=== PATIENT | male | born 1950 | race Caucasian/White ===

== ENCOUNTER 2017-05-01 15:20 | Emergency (ER) | payer MEDICARE ==
[2017-05-01 15:29] VITALS: BP 167/82
[2017-05-01] MEDS ORDERED: LEVOFLOXACIN 500 MG/D5W RTU 100 ML IV ONE (16:03)
[2017-05-01] MEDS ORDERED: METHYLPREDNISOLONE INJ 125 MG/2 ML SDV IV ONE (16:03)
--- NOTE | 2017-05-01 16:05 | ER Document Report ---
ED Medical Screen (RME) - General Chief Complaint: Cough Stated Complaint: WHEEZING Time Seen by Provider: 05/01/17 15:52 Mode of Arrival: Ambulatory Information source: Patient Notes: This is a 66-year-old man with a long history of smoking (stopped 5 years ago) who was referred to the emergency room by [facility] . The patient states she started having productive cough, wheezing several days ago. The patient was given 3 nebulizer treatments at the urgent care and a chest x-ray showed a possible right lower lobe pneumonia. They noted that the patient was hypoxic after nebulizer treatments (88%) and he was referred here. Patient states that he is feeling somewhat jittery from the 3 nebulizers. TRAVEL OUTSIDE OF THE [place] IN LAST 30 DAYS: No - Related Data Allergies/Adverse Reactions: No Known Allergies Allergy (Verified 05/01/17 15:26) Past Medical History - Social History Chew tobacco use (# tins/day): Yes Frequency of alcohol use: None Drug Abuse: None - Past Medical History Cardiac Medical History: Denies: Hx Heart Attack, Hx Hypertension Pulmonary Medical History: Comment Only: Hx Asthma - FORMER SMOKER Neurological Medical History: Denies: Hx Cerebrovascular Accident, Hx Seizures Renal/ Medical History: Denies: Hx Peritoneal Dialysis GI Medical History: Denies: Hx Hepatitis, Hx Hiatal Hernia, Hx Ulcer Infectious Medical History: Denies: Hx Hepatitis Past Surgical History: Denies: Hx Open Heart Surgery, Hx Pacemaker Physical Exam - Vital signs Vitals: Temp Pulse Resp BP Pulse Ox 98.2 F 127 H 18 167/82 H 93 05/01/17 15:28 05/01/17 15:28 05/01/17 15:28 05/01/17 15:28 05/01/17 15:28 Course - Vital Signs Vital signs: Temp Pulse Resp BP Pulse Ox 98.2 F 127 H 18 167/82 H 93 05/01/17 15:28 05/01/17 15:28 05/01/17 15:28 05/01/17 15:28 05/01/17 15:28
[2017-05-01 16:28] LABS: ABSOLUTE BASOPHILS # (AUTO) 0.1 10^3/uL (0.0-0.2); ABSOLUTE LYMPHOCYTES (AUTO) 1.4 10^3/uL (0.5-4.7); ABSOLUTE NEUT (AUTO) 11.7 10^3/uL (1.7-8.2); BASOPHILS % (AUTO) 0.6 % (0-2); EOSINOPHILS % (AUTO) 0.1 % (0-6); HEMATOCRIT 49.1 % (37.9-51.0); HEMOGLOBIN 15.7 g/dL (13.5-17.0); MEAN CORPUSCULAR HEMOGLOBIN 29.5 pg (27.0-33.4); MEAN CORPUSCULAR HGB CONC 31.9 g/dL (32.0-36.0); MEAN CORPUSCULAR VOLUME 93 fl (80-97); MONOCYTES % (AUTO) 6.9 % (3-13); RED BLOOD COUNT 5.31 10^6/uL (4.35-5.55); RED CELL DISTRIBUTION WIDTH 12.9 % (11.5-14.0); SEGMENTED NEUTROPHILS % (AUTO) 82.4 % (42-78); WHITE BLOOD COUNT 14.2 10^3/uL (4.0-10.5)
[2017-05-01 16:40] LABS: ALANINE AMINOTRANSFERASE 38 U/L (21-72); ALBUMIN 4.3 g/dL (3.5-5.0); ALKALINE PHOSPHATASE 67 U/L (38-126); ANION GAP 16 (5-19); ASPARTATE AMINO TRANSFERASE 22 U/L (17-59); BILIRUBIN,DIRECT 0.4 mg/dL (0.0-0.4); BILIRUBIN,TOTAL 0.9 mg/dL (0.2-1.3); BLOOD UREA NITROGEN 12 mg/dL (7-20); CALCIUM 9.4 mg/dL (8.4-10.2); CARBON DIOXIDE 25 mmol/L (22-30); CHLORIDE 98 mmol/L (98-107); CREATININE RESULT 0.83 mg/dL (0.52-1.25); GLUCOSE 317 mg/dL (75-110); POTASSIUM 4.8 mmol/L (3.6-5.0); TOTAL PROTEIN 7.5 g/dL (6.3-8.2)
--- NOTE | 2017-05-01 16:42 | ER Document Report ---
ED Respiratory Problem - General Chief Complaint: Cough Stated Complaint: WHEEZING Time Seen by Provider: 05/01/17 15:52 Mode of Arrival: Ambulatory Notes: Patient says he has had a cough for about 10 days. It is producing a yellow colored phlegm. He was having difficulty breathing and went to a local urgent care where he had 3 nebulizer treatments which left him shaking, but also he was still hypoxic after the third neb. They did a chest x-ray in which they think she has a right-sided pneumonia. He did a chest x-ray or the interpretation were sent with the patient. Patient says that he used to smoke, but stopped about 5 or more years ago. Has never been told he has COPD. Never had asthma. Patient has no regular prescription medications to take any medical condition. Patient says that he uses some [id number] inhaler to take before he sings in the choir at [employer] each week. TRAVEL OUTSIDE OF THE [place] IN LAST 30 DAYS: No - Related Data Allergies/Adverse Reactions: No Known Allergies Allergy (Verified 05/01/17 15:26) Past Medical History - General Information source: Patient - Social History Smoking Status: Former Smoker Chew tobacco use (# tins/day): Yes Frequency of alcohol use: None Drug Abuse: None Family History: Reviewed & Not Pertinent Patient has suicidal ideation: No Patient has homicidal ideation: No Pulmonary Medical History: Denies: Hx Asthma - FORMER SMOKER, Hx COPD, Hx Pneumonia, Hx Intubation, Hx Respiratory Failure Infectious Medical History: Denies: Hx Hepatitis Review of Systems - Review of Systems Notes: REVIEW OF SYSTEMS: CONSTITUTIONAL : Denies fever. EENT: Denies eye, ear, nose or mouth or throat pain or other symptoms. CARDIOVASCULAR: Denies chest pain. RESPIRATORY: GASTROINTESTINAL: Denies abdominal pain or nausea, vomiting, or diarrhea. GENITOURINARY: Denies difficulty or painful urinating, urinary frequency, blood in urine. MUSCULOSKELETAL: Denies back or neck pain. Denies joint pain or swelling. No pain or swelling in either lower leg. Negative Homans bilaterally. SKIN: Denies rash or skin lesions. NEUROLOGICAL: Denies LOC or altered mental status. Denies headache. Denies sensory loss or motor deficits. ALL OTHER SYSTEMS REVIEWED AND NEGATIVE. Physical Exam - Vital signs Vitals: Temp Pulse Resp BP Pulse Ox 98.2 F 127 H 18 167/82 H 93 05/01/17 15:28 05/01/17 15:28 05/01/17 15:28 05/01/17 15:28 05/01/17 15:28 Interpretation: Tachycardic - Heart rate of 127, but just recently had 3 nebulizer treatments at a local urgent care office. No: Hypoxic - O2 sat on room air here is 93%. - Notes Notes: PHYSICAL EXAMINATION: Vital signs essentially normal except for tachycardia 127. O2 sat was 93% on room air. GENERAL: Well-appearing, in no acute distress. HEAD: Atraumatic, normocephalic. NECK: Normal range of motion, supple. LUNGS: Fine expiratory wheezes bilaterally. Good air exchange, however. HEART: Regular rate and rhythm without murmurs. ABDOMEN: Soft, nontender. No guarding or rebound. BACK: No tenderness throughout entire back. EXTREMITIES: Normal range of motion without pain. Pretibial edema of either leg. Negative Homans bilaterally. NEUROLOGICAL: Normal speech, normal gait. Normal sensory, motor, and reflex exams. Awake, alert, and oriented x3. Cranial nerves normal. PSYCH: Normal mood, normal affect. SKIN: Warm, dry, no rashes. Course - Re-evaluation Re-evalutation: 05/01/17 18:22 Patient has done well during his stay in the department. He has maintained his oxygen saturations in the low 90s on room air and does not have any labored respirations. His heart rate is slowed down to about 102. I am going to give him one final nebulizer to go home. He is going to be prescribed prednisone, an inhaler for albuterol, and 5 day treatment with Levaquin. 05/01/17 18:24 Lab studies were all normal except for a blood sugar of 361. Patient has never been told he is diabetic and never been on medications for sugar. I am not going to start the patient on any medication for this blood sugar at this time because I do not think it will harm the patient to wait a couple of weeks to get this started by his primary care provider. He says he has an appointment with Dr. Coley on the th of this month, 17 days from now. - Vital Signs Vital signs: Temp Pulse Resp BP Pulse Ox 98.2 F 127 H 18 167/82 H 93 05/01/17 15:28 05/01/17 15:28 05/01/17 15:28 05/01/17 15:28 05/01/17 15:28 - Laboratory Result Diagrams: 05/01/17 16:10 05/01/17 16:10 Laboratory results interpreted by me: 05/01/17 05/01/17 16:10 16:10 WBC 14.2 H MCHC 31.9 L Seg Neutrophils % 82.4 H Lymphocytes % 10.0 L Absolute Neutrophils 11.7 H Glucose 317 H - Diagnostic Test Radiology results interpreted by me: 05/01/17 18:24 Chest x-ray is normal. No evidence of infiltrate or pneumonia. Discharge - Discharge Clinical Impression: COPD exacerbation, High blood sugar Upper respiratory infection Qualifiers: URI type: unspecified URI Qualified Code(s): J06.9 - Acute upper respiratory infection, unspecified Condition: Stable Disposition: HOME, SELF-CARE Additional Instructions: Chronic Obstructive Lung Disease You have chronic obstructive lung disease (COPD). The symptoms come from emphysema (damage to small airways, with trapping of air in large sacks in the lung) and chronic bronchitis (repeated infection and damage to larger airways). The cause is almost always cigarette smoking, although dust exposure, asthma, and infections contribute. You should avoid fumes, dust, and smoke (especially tobacco smoke). Your condition will flare from time to time. There is no cure, but the symptoms can be treated. Bronchodilators (asthma medicine) are often helpful. Antibiotics help when infection is present. When shortness of breath is severe, we may prescribe cortisone medication. If medicine doesn't help enough, we can arrange for you to have an oxygen tank at home. Notify your doctor at once if sputum becomes thick, foul, or bloody, if you develop a fever or chest pain, or if your shortness of breath worsens. BRONCHITIS WITH BRONCHOSPASM (WHEEZING): You have bronchitis with bronchospasm (wheezing). Sometimes people develop wheezing with a chest cold. This occurs either because of an underlying tendency toward asthma or because the virus itself irritates the bronchial tubes. This irritation causes cough, shortness of breath, and wheezing. Emergency treatment of bronchospasm may include adrenaline shots or bronchodilator aerosol. You may feel lightheaded and have a rapid pulse for an hour or two. Rest and get plenty of fluids. At home, we'll treat you with a bronchodilator inhaler. Corticosteroids may be required for some patients. Until you recover, avoid chemical fumes, dusts, pollens, and exercising in very cold or dry air. If you smoke, stop now! Most cases of bronchitis get better without antibiotics. We prescribe antibiotics when we believe bacteria are damaging your airways, or if there's high risk the bronchitis will worsen into pneumonia. Increase your fluid intake. A cool mist humidifier may make your lungs more comfortable. An expectorant (cough medicine that loosens phlegm) can help. Repeated episodes of bronchitis and bronchospasm may result in lung damage -- for example, chronic bronchitis, recurrent pneumonias, or emphysema. If you develop a fever, increased wheezing, chest pain, or severe shortness of breath, you should contact the doctor immediately. INHALED BRONCHODILATORS: You have received a treatment of and/or prescription for an inhaled bronchodilator -- a medication which stimulates the airways in the lung to dilate. This improves the flow of air in asthma, bronchitis, and emphysema. These medicines have some similarity to adrenaline, and can cause similar side effects: shakiness, racing heart, and a sense of nervousness. These side effects decrease with time. Contact your doctor if these side effects are severe. Do not over-use the medicine. Too-frequent use of the inhaler may make it ineffective. Call your doctor if the inhaler is not controlling your symptoms at the prescribed doses. STEROID MEDICATION: You have been given an injection of or oral medicine of the cortisone/ steroid class. This medication is used to control inflammation or allergy. Andrew t is usually only given for a short period of time, until the acute process subsides. There are usually no side effects from short-term use of cortisone-like medications. Some persons feel an increased sense of well-being and are not sleepy at bedtime. Long-term use of cortisone medications is best avoided, unless required for a severe condition. If your condition does not remit, or relapses after the course of corticosteroid medication, you should consult your physician. ANTIBIOTIC THERAPY: You have been given an antibiotic prescription. It's important that you take all the medication, unless instructed otherwise by your physician. Failure to complete the entire course can result in relapse of your condition. Common side effects of antibiotics include nausea, intestinal cramping, or diarrhea. Women may develop vaginal yeast infections, and babies can get yeast (thrush) in the mouth following the use of antibiotics. Contact your physician if you develop significant side effects from this medication. Allergy to this antibiotic can result in hives, wheezing, faintness, or itching. If symptoms of allergy occur, stop the medication and call your doctor. Levofloxacain You have been given an antibacterial agent, levofloxacin (Levaquin). This medicine is not related to the penicillins, sulfas, cephalosporins, or tetracyclines. It is often given to patients who are allergic to these drugs. It has been chosen for you either because other drugs are not appropriate, or because of the nature of your problem. Levaquin should not be taken with antacids, as these can decrease its effectiveness. It can be taken without regard to meals. LEVAQUIN SHOULD NOT BE TAKEN BY CHILDREN, NURSING WOMEN, OR WOMEN. Although Levaquin is usually well-tolerated, common side effects can include nausea and diarrhea. Contact your doctor if you experience any unusual symptoms while on this medication, such as joint pain or swelling, shortness of breath, wheezing, faintness, or hives. HYPERGLYCEMIA (HIGH BLOOD SUGAR): You have an abnormally high blood sugar of 316. Not all high blood sugar requires long-term treatment. High blood sugar can be due to medications, , or the stress of illness. (These cases are "borderline diabetes.") If the doctor feels your high blood sugar might resolve with time, you may not require treatment now. It's very important that you follow through, to see if the blood sugar returns to normal levels. Uncontrolled high blood sugar leads to early heart disease, strokes, nerve damage, eye damage, and kidney damage. Call the physician if there is faintness, excess sleepiness, or very rapid breathing. You need to follow-up with Dr. Coley as planned on the and make him aware that your blood sugar was high on this visit to the emergency department so he can determine if you need to be on medications to treat your high blood sugar. DIABETES: You have an abnormally high blood sugar, suspicious for diabetes. Not all high blood sugar requires long-term treatment. High blood sugar can be due to medications, , or the stress of illness. (These cases are "borderline diabetes.") If the doctor feels your high blood sugar might get better with time, you may not require treatment now. It's very important that you follow through. Uncontrolled high blood sugar leads to early heart disease, strokes, nerve damage, eye damage, and kidney damage. All diabetics should follow a diet designed to control the blood sugar. Overweight diabetics should exercise regularly and lose weight. If this is not sufficient to control the blood sugar, pills or insulin shots are necessary. Younger people who develop diabetes almost always require insulin daily. Home testing of blood sugars or urine sugar is required. Diabetic teaching is available to help you figure insulin doses and monitor the blood sugar. Call the physician if there is faintness, excess sleepiness, or very rapid breathing. If hypoglycemia (LOW blood sugar) develops, symptoms are shakiness, weakness, sweating, and confusion. In this case, you should eat or drink something with sugar at once. USE OF ACETAMINOPHEN (Tylenol): Acetaminophen may be taken for pain relief or fever control. It's much safer than aspirin, offering a wider range of "safe" dosages. It is safe during . Some brand names are Tylenol, Panadol, Datril, Anacin 3, Tempra, and Liquiprin. Acetaminophen can be repeated every four hours. The following are maximum recommended dosages: >89 pounds or adults 650 mg to 900 mg Acetaminophen can be repeated every four hours. Maximum dose not to exceed 4000 mg a day. FOLLOW-UP CARE: If you have been referred to a physician for follow-up care, call the physician s office for an appointment as you were instructed or within the next two days. If you experience worsening or a significant change in your symptoms, notify the physician immediately or return to the Emergency Department at any time for re-evaluation. Prescriptions: Albuterol Sulfate [Proair HFA Inhalation Aerosol 8.5 gm MDI] 2 puff IH Q4H PRN # 1 mdi PRN Reason: Levofloxacin [Levaquin 750 mg Tablet] 750 mg PO DAILY #5 tablet Prednisone [Deltasone 10 mg Tablet] 10 mg PO ASDIR PRN #21 tablet PRN Reason:
--- NOTE | 2017-05-01 17:11 | RADIOLOGY REPORT (SQ) ---
EXAM DESCRIPTION: CHEST PA/LAT COMPLETED DATE/TIME: 05/01/2017 5:02 pm REASON FOR STUDY: Cough, congestion, wheezing, ? pneumonia COMPARISON: None. EXAM PARAMETERS: NUMBER OF VIEWS: two views TECHNIQUE: Digital Frontal and Lateral radiographic views of the chest acquired. RADIATION DOSE: NA LIMITATIONS: none FINDINGS: LUNGS AND PLEURA: The lungs are hyperinflated with flattening of the diaphragm suggestive of underlying COPD. No opacities, masses or pneumothorax. No pleural effusion. MEDIASTINUM AND HILAR STRUCTURES: No masses or contour abnormalities. HEART AND VASCULAR STRUCTURES: Heart normal size. No evidence for failure. BONES: No acute findings. HARDWARE: None in the chest. OTHER: No other significant finding. IMPRESSION: NO ACUTE CARDIOPULMONARY PROCESS. FINDINGS SUGGESTIVE OF UNDERLYING COPD. TECHNICAL DOCUMENTATION: JOB ID: [id number] [email or web address]- All Rights Reserved
[2017-05-01] MEDS ORDERED: IPRATROPIUM/ALBUTEROL 0.5-2.5 MG/3 ML AMPUL NEB ONE (18:21)
== END 2017-05-01 19:05 | disposition home or self-care (01) ==
LOC: ER 15:20
DX: J44.1 Chronic obstructive pulmonary disease with (acute) exacerbation (principal); J06.9 Acute upper respiratory infection, unspecified; R73.9 Hyperglycemia, unspecified; R05 Cough; Z87.891 Personal history of nicotine dependence
CPT/HCPCS: 94640; 99283; 96375; 96365; 36415; 87040; 85025; 80053; 71020; J1956; J2930; A9270; J7620

== ENCOUNTER 2019-10-29 22:37 | Emergency (ER) | payer MEDICARE, OTHER ==
[2019-10-29] MEDS ORDERED: IPRATROPIUM/ALBUTEROL 0.5-2.5 MG/3 ML AMPUL NEB ONE (23:43)
[2019-10-29] MEDS ORDERED: ONDANSETRON 4 MG TAB.RAPDIS PO ONE (23:43)
[2019-10-29] MEDS ORDERED: ASPIRIN 81 MG TABLET, CHEWABLE PO ONE (23:43)
--- NOTE | 2019-10-29 23:45 | ER Document Report ---
ED Medical Screen (RME) - General Stated Complaint: COUGH Time Seen by Provider: 10/29/19 23:42 Information source: Patient Notes: Patient presents complaining of cough for the past 3 days. Patient does report nausea as well. Patient complains of chest discomfort that is worse with coughing. Patient also reports some shortness of breath. Patient does have a history of diabetes. Patient is uncertain if he has had a fever at home. I have greeted and performed a rapid initial assessment of this patient. A comprehensive ED assessment and evaluation of the patient, analysis of test results and completion of the medical decision making process will be conducted by additional ED providers. TRAVEL OUTSIDE OF THE [place] IN LAST 30 DAYS: No - Related Data Allergies/Adverse Reactions: No Known Allergies Allergy (Verified 05/01/17 15:26) Past Medical History - Past Medical History Cardiac Medical History: Denies: Hx Heart Attack, Hx Hypertension Pulmonary Medical History: Denies: Hx COPD, Hx Pneumonia, Hx Intubation, Hx Respiratory Failure Comment Only: Hx Asthma - FORMER SMOKER Neurological Medical History: Denies: Hx Cerebrovascular Accident, Hx Seizures Renal/ Medical History: Denies: Hx Peritoneal Dialysis GI Medical History: Denies: Hx Hepatitis, Hx Hiatal Hernia, Hx Ulcer Infectious Medical History: Denies: Hx Hepatitis Past Surgical History: Denies: Hx Open Heart Surgery, Hx Pacemaker Physical Exam - Vital signs Vitals: Temp Pulse Resp BP Pulse Ox 99.8 F 119 H 20 147/77 H 96 10/29/19 22:46 10/29/19 22:46 10/29/19 22:46 10/29/19 22:46 10/29/19 22:46 - Respiratory Respiratory status: Tachypnea Chest status: Pain with cough Breath sounds: Nonproductive cough, Wheezing Course - Vital Signs Vital signs: Temp Pulse Resp BP Pulse Ox 99.8 F 119 H 20 147/77 H 96 10/29/19 22:46 10/29/19 22:46 10/29/19 22:46 10/29/19 22:46 10/29/19 22:46
--- NOTE | 2019-10-30 00:59 | RADIOLOGY REPORT (SQ) ---
EXAM DESCRIPTION: XR CHEST 2 VIEWS COMPLETED DATE/TME: 10/29/2019 23:43 CLINICAL HISTORY: 68 years, Male, cough COMPARISON: None. NUMBER OF VIEWS: TECHNIQUE: LIMITATIONS: None. FINDINGS: No evidence of pulmonary infiltrate or pleural effusion. The heart and mediastinum are unremarkable. Pulmonary vascularity appears normal. IMPRESSION: No acute finding. copyright 2010 [employer]- All Rights Reserved
[2019-10-30 01:22] LABS: ABSOLUTE BASOPHILS # (AUTO) 0.1 10^3/uL (0.0-0.2); ABSOLUTE LYMPHOCYTES (AUTO) 1.6 10^3/uL (0.5-4.7); ABSOLUTE MONOCYTES (AUTO) 1.4 10^3/uL (0.1-1.4); ABSOLUTE NEUT (AUTO) 14.3 10^3/uL (1.7-8.2); BASOPHILS % (AUTO) 0.6 % (0-2); EOSINOPHILS % (AUTO) 0.1 % (0-6); HEMATOCRIT 47.1 % (37.9-51.0); HEMOGLOBIN 15.6 g/dL (13.5-17.0); LYMPHOCYTES % (AUTO) 9.2 % (13-45); MEAN CORPUSCULAR HEMOGLOBIN 29.8 pg (27.0-33.4); MEAN CORPUSCULAR HGB CONC 33.2 g/dL (32.0-36.0); MEAN CORPUSCULAR VOLUME 90 fl (80-97); PLATELET COUNT 276 10^3/uL (150-450); RED BLOOD COUNT 5.25 10^6/uL (4.35-5.55); RED CELL DISTRIBUTION WIDTH 13.4 % (11.5-14.0); SEGMENTED NEUTROPHILS % (AUTO) 82.1 % (42-78); TOTAL CELLS COUNTED % (AUTO) 100 %; WHITE BLOOD COUNT 17.4 10^3/uL (4.0-10.5)
[2019-10-30 01:44] LABS: ALBUMIN 4.5 g/dL (3.5-5.0); ALKALINE PHOSPHATASE 54 U/L (38-126); ANION GAP 12 (5-19); ASPARTATE AMINO TRANSFERASE 25 U/L (17-59); BILIRUBIN,DIRECT 0.2 mg/dL (0.0-0.4); BILIRUBIN,TOTAL 0.9 mg/dL (0.2-1.3); BLOOD UREA NITROGEN 15 mg/dL (7-20); CALCIUM 9.4 mg/dL (8.4-10.2); CARBON DIOXIDE 27 mmol/L (22-30); CHLORIDE 97 mmol/L (98-107); GLUCOSE 167 mg/dL (75-110); POTASSIUM 4.9 mmol/L (3.6-5.0); TOTAL PROTEIN 7.5 g/dL (6.3-8.2)
[2019-10-30 01:45] LABS: A TYPE INFLUENZA AG NEGATIVE (NEGATIVE); B INFLUENZA AG NEGATIVE (NEGATIVE)
[2019-10-30] MEDS ORDERED: ONDANSETRON 4 MG TAB.RAPDIS PO ONE (03:45)
[2019-10-30] MEDS ORDERED: IPRATROPIUM/ALBUTEROL 0.5-2.5 MG/3 ML AMPUL NEB ONE (03:45)
[2019-10-30] MEDS ORDERED: ASPIRIN 81 MG TABLET, CHEWABLE PO ONE (03:45)
[2019-10-30] MEDS ORDERED: NORMAL SALINE 1000 ML 1,000 ML IV ONE (05:24)
[2019-10-30] MEDS ORDERED: ALBUTEROL SULFATE HFA (90 MCG/PUFF) 8 GM MDI (1 MDI/ER DISP) IH ONE (05:24)
[2019-10-30] MEDS ORDERED: PREDNISONE 20 MG TABLET PO ONE (05:24)
[2019-10-30] MEDS ORDERED: AZITHROMYCIN 250 MG TABLET PO ONE (05:24)
--- NOTE | 2019-10-30 05:29 | ER Document Report ---
ED Respiratory Problem - General Chief Complaint: Cough Stated Complaint: COUGH Time Seen by Provider: 10/29/19 23:42 Primary Care Provider: CHRISTIAN FERNANDES DO [Primary Care Provider] - Follow up as needed Notes: Patient is a 68-year-old male that comes to the Emergency Department for chief complaint of worsening cough and wheezing for the past 3 days. He denies fevers. He states he has pain in his chest when coughing but denies chest pain otherwise. He is a former smoker, no diagnosis of COPD or asthma. He has a history of insulin-dependent diabetes and uses a sliding scale. He denies medical history otherwise. He states he received a breathing treatment from [facility] and now he feels much better and he is hoping to go home. TRAVEL OUTSIDE OF THE [place] IN LAST 30 DAYS: No - Related Data Allergies/Adverse Reactions: No Known Allergies Allergy (Verified 05/01/17 15:26) Home Medications: metformin, lisinopril, atorvastatin, baby asa, lantus insulin, novalin R Past Medical History - General Information source: Patient - Social History Smoking Status: Former Smoker Frequency of alcohol use: None Drug Abuse: None Lives with: Family Family History: Reviewed & Not Pertinent Patient has suicidal ideation: No Patient has homicidal ideation: No - Past Medical History Cardiac Medical History: Denies: Hx Heart Attack, Hx Hypertension Pulmonary Medical History: Denies: Hx COPD, Hx Pneumonia, Hx Intubation, Hx Respiratory Failure Comment Only: Hx Asthma - FORMER SMOKER Neurological Medical History: Denies: Hx Cerebrovascular Accident, Hx Seizures Endocrine Medical History: Reports: Hx Diabetes Mellitus Type 2 Renal/ Medical History: Denies: Hx Peritoneal Dialysis GI Medical History: Denies: Hx Hepatitis, Hx Hiatal Hernia, Hx Ulcer Infectious Medical History: Denies: Hx Hepatitis Past Surgical History: Denies: Hx Open Heart Surgery, Hx Pacemaker - Immunizations Immunizations up to date: Yes Hx Diphtheria, Pertussis, Tetanus Vaccination: Yes Review of Systems - Review of Systems Constitutional: See HPI EENT: No symptoms reported Cardiovascular: No symptoms reported Respiratory: See HPI Gastrointestinal: No symptoms reported Genitourinary: No symptoms reported Male Genitourinary: No symptoms reported Musculoskeletal: No symptoms reported Skin: No symptoms reported Hematologic/Lymphatic: No symptoms reported Neurological/Psychological: No symptoms reported Physical Exam - Vital signs Vitals: Temp Pulse Resp BP Pulse Ox 99.8 F 119 H 20 147/77 H 96 10/29/19 22:46 10/29/19 22:46 10/29/19 22:46 10/29/19 22:46 10/29/19 22:46 - Notes Notes: GENERAL: Alert, interacts well. No acute distress. HEAD: Normocephalic, atraumatic. EYES: Pupils equal, round, and reactive to light. Extraocular movements intact. ENT: Oral mucosa very dry, tongue midline. Oropharynx unremarkable. Airway patent. NECK: Full range of motion. Supple. Trachea midline. LUNGS: Few coarse scattered breath sounds, no wheezes, rales or rhonchi. Occasional congested cough. No respiratory distress HEART: Tachycardia, normal rhythm, no murmur ABDOMEN: Soft, non-tender. Non-distended. EXTREMITIES: Moves all 4 extremities spontaneously. No edema, normal radial and dorsalis pedis pulses bilaterally. No cyanosis. BACK: no cervical, thoracic, lumbar midline tenderness. No saddle anesthesia, normal distal neurovascular exam. Moves all extremities in full range of motion. NEUROLOGICAL: Alert and oriented x3. Normal speech. Cranial nerves II through XII grossly intact. PSYCH: Normal affect, normal mood. SKIN: Warm, dry, normal turgor. No rashes or lesions noted. Course - Re-evaluation Re-evalutation: Patient was reportedly initially wheezing but on my evaluation he has received duo nebs and steroids and his wheezing is completely resolved. He does have an occasional congested cough. He has no tachypnea or complaints. Pulse oxygen saturation 96%. He is tachycardic however, his mucous membranes are very dry, he will be given IV fluids. CBC shows leukocytosis at 17,000 with elevation of neutrophils but no bandemia. Chest x-ray unremarkable. Chemistry unremarkable. Troponin not elevated. EKG unremarkable. Influenza negative. Discussed with patient. Overall presentation is most consistent with bronchitis, however because of his leukocytosis and productive cough he will be treated for possible underlying pneumonia, he will be treated with steroids and this was discussed at length including insulin adjustments which patient states understanding about. He will also be provided with albuterol inhaler and spacer. Discussed close follow-up and return precautions. Tachycardia resolved after IV fluids. Patient states appreciation and agreement and states he feels great and is ready to go home. Stable and well-appearing at time of discharge without any dyspnea on exertion. - Vital Signs Vital signs: Temp Pulse Resp BP Pulse Ox 98.4 F 89 20 119/55 L 92 10/30/19 07:34 10/30/19 07:34 10/30/19 07:34 10/30/19 07:34 10/30/19 07:34 - Laboratory Result Diagrams: 10/30/19 01:11 10/30/19 01:11 Laboratory results interpreted by me: 10/30/19 10/30/19 01:11 01:11 WBC 17.4 H Lymph % (Auto) 9.2 L Absolute Neuts (auto) 14.3 H Seg Neutrophils % 82.1 H Sodium 136.4 L Chloride 97 L Glucose 167 H - EKG Interpretation by Me Additional EKG results interpreted by me: EKG shows sinus rhythm at a rate of 117, QTC 436, no T wave inversions or ST segment changes in consecutive leads Discharge - Discharge Clinical Impression: Wheezing, Productive cough Condition: Stable Disposition: HOME, SELF-CARE Additional Instructions: Your evaluation is concerning for bronchitis and possible underlying developing pneumonia. Take antibiotics as prescribed, prednisone as prescribed, and use albuterol inhaler as prescribed. Rest and drink plenty of fluids. You may need to increase your insulin while on the steroids. Please follow-up closely with your primary care provider for a reevaluation. Return if you worsen including difficulty breathing, spiking fevers, or any other concerning or worsening symptoms. Prescriptions: Prednisone [Deltasone 20 mg Tablet] 3 tab PO DAILY 4 Days #12 tablet Albuterol Sulfate [Proair HFA Inhalation Aerosol 8.5 gm MDI] 2 puff IH Q4H PRN #1 mdi PRN Reason: Azithromycin [Zithromax 250 mg Tablet] 250 mg PO ASDIR PRN #4 tablet PRN Reason: Referrals: CHRISTIAN FERNANDES DO [Primary Care Provider] - Follow up as needed
[2019-10-30 07:39] VITALS: BP 119/55
--- NOTE | 2019-10-30 10:09 | EKG REPORT ---
SEVERITY:- OTHERWISE NORMAL ECG - SINUS TACHYCARDIA BORDERLINE RIGHT AXIS DEVIATION : Confirmed by: Jeremy George MD 30-Oct-2019 10:08:28
== END 2019-10-30 07:39 | disposition home or self-care (01) ==
LOC: ER 22:37
DX: R05 Cough (principal); R06.2 Wheezing; R07.9 Chest pain, unspecified; Z87.891 Personal history of nicotine dependence; E11.9 Type 2 diabetes mellitus without complications; Z79.4 Long term (current) use of insulin; Z79.84 Long term (current) use of oral hypoglycemic drugs; Z79.899 Other long term (current) drug therapy
CPT/HCPCS: 93005; 94640; 99283; 96360; 36415; 85025; 80053; 84484; 87804; 71046; 93010; S0119; J7512; J7030; J3490; J7620

== ENCOUNTER 2020-01-14 15:43 | Inpatient (IN) | payer MEDICARE, MEDICAID ==
[2020-01-14] MEDS ORDERED: ALBUTEROL SULFATE HFA (90 MCG/PUFF) 8 GM MDI (1 MDI/ER DISP) IH ONE (15:53)
[2020-01-14] MEDS ORDERED: ACETAMINOPHEN 325 MG TABLET PO ONE (15:54)
[2020-01-14] MEDS ORDERED: CEFEPIME 2 GM/D5W RTU 2 GM/50 ML RTUPB IV ONE (15:55)
[2020-01-14 16:03] LABS: ABSOLUTE BASOPHILS # (AUTO) 0.1 10^3/uL (0.0-0.2); ABSOLUTE NEUT (AUTO) 10.8 10^3/uL (1.7-8.2); BASOPHILS % (AUTO) 0.4 % (0-2); EOSINOPHILS % (AUTO) 0.1 % (0-6); HEMOGLOBIN 14.4 g/dL (13.5-17.0); MEAN CORPUSCULAR HEMOGLOBIN 30.2 pg (27.0-33.4); MEAN CORPUSCULAR HGB CONC 34.3 g/dL (32.0-36.0); MEAN CORPUSCULAR VOLUME 88 fl (80-97); MONOCYTES % (AUTO) 7.4 % (3-13); PLATELET COUNT 268 10^3/uL (150-450); RED BLOOD COUNT 4.77 10^6/uL (4.35-5.55); RED CELL DISTRIBUTION WIDTH 13.9 % (11.5-14.0); SEGMENTED NEUTROPHILS % (AUTO) 84.1 % (42-78); TOTAL CELLS COUNTED % (AUTO) 100 %; WHITE BLOOD COUNT 12.8 10^3/uL (4.0-10.5)
[2020-01-14 16:06] LABS: VENOUS BLOOD BASE EXCESS -0.4 mmol/L; VENOUS BLOOD HCO3 24.1 mmol/L (20-32); VENOUS BLOOD PCO2 39.5 mmHg (35-63); VENOUS BLOOD PH 7.4 (7.30-7.42)
[2020-01-14] MEDS: NORMAL SALINE 1000 ML 1,000 ML IV PRN ×2 (16:15→18:20)
[2020-01-14 16:17] LABS: A TYPE INFLUENZA AG NEGATIVE (NEGATIVE); B INFLUENZA AG NEGATIVE (NEGATIVE)
[2020-01-14 16:22] LABS: INTERNATIONAL RATION (INR) 1.07; PROTHROMBIN TIME 13.9 SEC (11.4-15.4)
[2020-01-14 16:23] LABS: ALBUMIN 4.2 g/dL (3.5-5.0); ALKALINE PHOSPHATASE 59 U/L (38-126); ANION GAP 14 (5-19); ASPARTATE AMINO TRANSFERASE 24 U/L (17-59); BILIRUBIN,DIRECT 0.1 mg/dL (0.0-0.4); BLOOD UREA NITROGEN 17 mg/dL (7-20); CARBON DIOXIDE 23 mmol/L (22-30); CHLORIDE 97 mmol/L (98-107); GLUCOSE 199 mg/dL (75-110); POTASSIUM 4.4 mmol/L (3.6-5.0); TOTAL PROTEIN 6.9 g/dL (6.3-8.2)
--- NOTE | 2020-01-14 16:23 | ER Document Report ---
ED General - General Chief Complaint: Breathing Difficulty Stated Complaint: FEVER/COUGH Time Seen by Provider: 01/14/20 15:49 Primary Care Provider: CHRISTIAN FERNANDES DO [Primary Care Provider] - Follow up as needed TRAVEL OUTSIDE OF THE [place] IN LAST 30 DAYS: No - HPI Notes: Patient is a 69-year-old male with a history of diabetes and hypertension presents complaining of having cough, nasal congestion/discharge, shortness of breath, fever that began 3 days ago. He is able to eat and drink, but does have decreased p.o. intake. He is urinating normally and having normal bowel movements. Patient has no known exposure to coronavirus places or people. No history of CAD, PE, DVT. He is not on any blood thinning medications. Denies drug allergies. Denies any headache, neck pain, sore throat, chest pain, palpitations, syncope, abdominal pain, nausea/vomiting/diarrhea, urinary retention, dysuria, hematuria, or rash. - Related Data Allergies/Adverse Reactions: No Known Allergies Allergy (Verified 05/01/17 15:26) Past Medical History - Social History Smoking Status: Unknown if Ever Smoked Frequency of alcohol use: None Drug Abuse: None Family History: Reviewed & Not Pertinent Patient has suicidal ideation: No Patient has homicidal ideation: No - Past Medical History Cardiac Medical History: Denies: Hx Heart Attack, Hx Hypertension Pulmonary Medical History: Denies: Hx COPD, Hx Pneumonia, Hx Intubation, Hx Respiratory Failure Comment Only: Hx Asthma - FORMER SMOKER Neurological Medical History: Denies: Hx Cerebrovascular Accident, Hx Seizures Endocrine Medical History: Reports: Hx Diabetes Mellitus Type 2 Renal/ Medical History: Denies: Hx Peritoneal Dialysis GI Medical History: Denies: Hx Hepatitis, Hx Hiatal Hernia, Hx Ulcer Infectious Medical History: Denies: Hx Hepatitis Past Surgical History: Denies: Hx Open Heart Surgery, Hx Pacemaker - Immunizations Immunizations up to date: Yes Hx Diphtheria, Pertussis, Tetanus Vaccination: Yes Review of Systems - Review of Systems -: Yes All other systems reviewed and negative Physical Exam - Vital signs Vitals: Resp 28 H 01/14/20 15:45 - Notes Notes: PHYSICAL EXAMINATION: GENERAL: Well-appearing, well-nourished and in no acute distress. Febrile at 103. HEAD: Atraumatic, normocephalic. EYES: Pupils equal round and reactive to light, extraocular movements intact, sclera anicteric, conjunctiva are normal. ENT: Nares patent and without discharge. oropharynx clear without exudates. No tonsilar hypertrophy or erythema. Moist mucous membranes. NECK: Normal range of motion, supple without lymphadenopathy LUNGS: crackle RLL. no retractions. Hypoxic on RA. On O2 via NC at 4L and at 94%. HEART: Tachycardic, RRR. ABDOMEN: Soft, nontender, nondistended abdomen. No guarding, no rebound. Normal bowel sounds present. No CVA tenderness bilaterally. Musculoskeletal: FROM to passive/active. Strength 5+/5. Walter neg. No asymmetry to LE's. Extremities: No cyanosis, clubbing, or edema b/l. Peripheral pulses 2+. Capillary refill less than 3 seconds. NEUROLOGICAL: Normal speech, normal gait. PSYCH: Normal mood, normal affect. SKIN: Warm, Dry, normal turgor, no rashes or lesions noted. Course - Re-evaluation Re-evalutation: 01/14/20 18:44 Patient is a 69-year-old male who presents meeting Sepsis criteria with multifocal pneumonia (worse in the RLL). He has tachycardia, tachypnea, and has been hypoxic on RA. See labs and imaging. He is stable on O2 via NC at 95% with RR of 24. Pt is tachycardic but much improved from his initial arrival. He has been given meds, fluids, and antibiotics. Call placed for admission, but I need to wait for the assistant professor of education to come on duty for discussion. COVID testing has been obtained and droplet/PPE precautions are recommended. 01/14/20 19:21 Dr. Hernández accepted pt to medical floor. - Vital Signs Vital signs: Temp Pulse Resp BP Pulse Ox 99.7 F 145 H 34 H 137/84 H 98 01/14/20 18:49 01/14/20 15:53 01/14/20 18:26 01/14/20 18:26 01/14/20 19:00 - Laboratory Result Diagrams: 01/14/20 15:45 01/14/20 15:45 Laboratory results interpreted by me: 01/14/20 01/14/20 01/14/20 15:45 15:45 15:45 WBC 12.8 H Lymph % (Auto) 8.0 L Absolute Neuts (auto) 10.8 H Seg Neutrophils % 84.1 H Sodium 133.6 L Chloride 97 L Glucose 199 H Lactic Acid 2.8 H Discharge - Discharge Clinical Impression: Multifocal pneumonia Condition: Stable Disposition: ADMITTED INPATIENT Admitting Provider: Betty (Hospitalist) Unit Admitted: Medical Floor Referrals: CHRISTIAN FERNANDES DO [Primary Care Provider] - Follow up as needed
--- NOTE | 2020-01-14 16:25 | RADIOLOGY REPORT (SQ) ---
EXAM DESCRIPTION: CHEST SINGLE VIEW COMPLETED DATE/TIME: 01/14/2020 4:12 pm REASON FOR STUDY: SOB COMPARISON: Chest x-ray 10/30/2019, 05/01/2017. EXAM PARAMETERS: NUMBER OF VIEWS: One view. TECHNIQUE: Single frontal radiographic view of the chest acquired. RADIATION DOSE: NA LIMITATIONS: None. FINDINGS: LUNGS AND PLEURA: No consolidation, pleural effusion or pneumothorax. MEDIASTINUM AND HILAR STRUCTURES: No masses. Contour normal. HEART AND VASCULAR STRUCTURES: Heart normal in size. Normal vasculature. BONES: No acute findings. HARDWARE: None in the chest. IMPRESSION: NO ACUTE RADIOGRAPHIC FINDING IN THE CHEST. TECHNICAL DOCUMENTATION: JOB ID: [id number] 2010 [employer]- All Rights Reserved Reading location - IP/workstation name: [email or web address]
[2020-01-14] MEDS ORDERED: LEVOFLOXACIN 750 MG TABLET PO ONE (17:03)
[2020-01-14] MEDS ORDERED: METHYLPREDNISOLONE INJ 125 MG/2 ML SDV IV ONE (17:21)
[2020-01-14] MEDS ORDERED: NORMAL SALINE 1000 ML 1,000 ML IV ONE (18:09)
--- NOTE | 2020-01-14 18:28 | RADIOLOGY REPORT (SQ) ---
EXAM DESCRIPTION: CTA CHEST COMPLETED DATE/TIME: 01/14/2020 5:01 pm REASON FOR STUDY: shortness of breath, cough, fever COMPARISON: Chest radiograph, same date. TECHNIQUE: CT scan of the chest performed using helical scanning technique with dynamic intravenous contrast injection. Images reviewed with lung, soft tissue and bone windows. Reconstructed coronal and sagittal MPR images reviewed. Additional 3 dimensional post-processing performed to develop Maximal Intensity Projection images (FL P). All images stored on PACS. All CT scanners at this facility use dose modulation, iterative reconstruction, and/or weight based d osing when appropriate to reduce radiation dose to as low as reasonably achievable (ALARA). [facility]: Dose Right [facility]: CareDose [facility]: Dose Right [facility]: Teradose 4D [facility]: [employer] Broadcast CONTRAST TYPE AND DOSE: contrast/concentration: Isovue 350.00 mg/ml; Total Contrast Delivered: 70.0 ml; Total Saline Delivered: 80.0 ml Contrast bolus optimized for the pulmonary arteries. Not diagnostic for the aorta. RENAL FUNCTION: GFR > 60. RADIATION DOSE: CT Rad equipment meets quality standard of care and radiation dose reduction techniq ues were employed. CTDIvol: 14.9 - 24.0 mGy. DLP: 881 mGy-cm. . LIMITATIONS: None. FINDINGS: LUNGS AND PLEURA: There is patchy consolidation in the right lower lobe and to a lesser ex tent patchy tree-in-bud and nodular consolidation in the medial left lower lobe. No pleural effusion or pneumothorax. AORTA AND GREAT VESSELS: No aneurysm. Contrast bolus not optimized for the aorta. HEART: No pericardial effusion. No significant coronary artery calcifications. PULMONARY ARTERIES: No emboli visualized in the main pulmonary arteries or the segmental branches. HILAR AND MEDIASTINAL STRUCTURES: No identified masses or abnormal nodes. HARDWARE: None in the chest. UPPER ABDOMEN: Moderate hepatic steatosis. THYROID AND OTHER SOFT TISSUES: No masses. No adenopathy. BONES: No acute or significant finding. 3D MIPS: Confirm above findings. OTHER: No other significant finding. IMPRESSION: 1. Multifocal pneumonia most prominent in the right lower lobe. 2. Moderate hepatic steatosis. 3. No pulmonary embolism. COMMENT: Quality ID # [id number]: Final reports with documentation of one or more dose reduction techniques (e.g., Automated exposure control, adjustment of the mA and/or kV according to patient size, use of iterative reconstruction technique) TECHNICAL DOCUMENTATION: JOB ID: [id number] 2010 [employer]- All Rights Reserved Reading location - IP/workstation name: [email or web address]
--- NOTE | 2020-01-14 19:55 | EKG REPORT ---
SEVERITY:- OTHERWISE NORMAL ECG - SINUS TACHYCARDIA BORDERLINE RIGHT AXIS DEVIATION : Confirmed by: Kendra Sanchez MD 14-Jan-2020 19:55:06
[2020-01-14] MEDS ORDERED: LEVALBUTEROL HCL NEB 0.63 MG/3 ML AMPUL NEB PRN (20:00)
[2020-01-14] MEDS ORDERED: GLUCAGON,HUMAN RECOMB 1 MG INJ IM PRN (20:00)
[2020-01-14] MEDS ORDERED: DEXTROSE 40% GEL 15 GM TUBE PO PRN ×2 (20:00)
[2020-01-14] MEDS ORDERED: DEXTROSE 50%-WATER 25 GM/50 ML DISP.SYRIN IV PRN ×2 (20:00)
[2020-01-14] MEDS ORDERED: NICOTINE 21 MG/24 HR PATCH.TD24 TD PRN (20:07)
[2020-01-14] MEDS ORDERED: IBUPROFEN 800 MG TABLET PO PRN (20:07)
[2020-01-14] MEDS ORDERED: ACETAMINOPHEN 325 MG TABLET PO PRN (20:07)
[2020-01-14] MEDS: FAMOTIDINE 20 MG TABLET PO SCH (21:51)
[2020-01-14] MEDS: HEPARIN SOD (PORCINE) 5,000 UNIT/ML 1 ML VIAL SUBCUT SCH (21:52)
[2020-01-14] MEDS: INSULIN REG, HUMAN 100 UNIT/ML 3 ML VIAL (PYX) SUBCUT SCH (22:00)
[2020-01-14] MEDS: ACETYLCYSTEINE 20% SOLN 800 MG/4 ML VIAL.NEB NEB SCH (23:29)
[2020-01-14] MEDS: LEVALBUTEROL HCL NEB 1.25 MG/3 ML AMPUL NEB SCH (23:50)
[2020-01-14] MEDS: IPRATROPIUM BROMIDE 0.02% NEB 0.5 MG/2.5 ML AMPUL NEB SCH (23:50)
[2020-01-15] MEDS ORDERED: ALBUTEROL SULFATE 0.083% NEB 2.5 MG/3 ML AMPUL NEB SCH
--- NOTE | 2020-01-15 00:45 | PDOC H&P ---
History of Present Illness Admission Date/PCP: 01/14/2020 19:25 CHRISTIAN FERNANDES DO Patient complains of: Dyspnea History of Present Illness: AMAURY BERMAN is a 69 year old male who presented to the emergency room with a 3- day history of dyspnea. He admits progressively worsening dyspnea, exacerbated by exertion, accompanied by a productive cough (clear to white phlegm), nasal congestion with clear discharge and associated with a subjective fever. His dyspnea has become severe. He denies other associated or accompanying signs and symptoms. He denies prior similar episodes. He has not identified any additional aggravating or ameliorating factors for his dyspnea. In the emergency room he was found to be febrile, have an elevated white blood count at 12,800 and an elevated lactic acid at 2.8. He was noted to have hypoxia requiring supplemental oxygen and a multifocal pneumonia on his chest CT. He was subsequently admitted to the hospital for further evaluation treatment. Past Medical History Cardiac Medical History: Reports: Hypertension Denies: Atrial Fibrillation, Congestive Heart Failure, Coronary Artery Disease, DVT, Myocardial Infarction, Pulmonary Embolism Pulmonary Medical History: Reports: Asthma Denies: Chronic Obstructive Pulmonary Disease (COPD), Intubation, Pneumonia, Respiratory Failure EENT Medical History: Reports: Eyes - Wears corrective lenses Denies: Cataracts, Ears - Hearing aids Neurological Medical History: Denies: Hemorrhagic CVA, Ischemic CVA, Seizures Endocrine Medical History: Reports: Diabetes Mellitus Type 2 Denies: Diabetes Mellitus Type 1, Hyperthyroidism, Hypothyroidism Renal/ Medical History: Reports: Other - Left inguinal hernia repaired Denies: Chronic Kidney Disease, Nephrolithiasis Malignancy Medical History: Reports: None GI Medical History: Denies: Cirrhosis, Crohn's Disease, Gastroesophageal Reflux Disease, Hepatitis, Hiatal Hernia, Peptic Ulcer Disease, Ulcerative Colitis Musculoskeltal Medical History: Denies: Arthritis, Gout Skin Medical History: Denies: Eczema, Psoriasis Psychiatric Medical History: Reports: Alcohol Dependency, Substance Abuse, Tobacco Dependency Traumatic Medical History: Reports: None Hematology: Denies: Anemia, Bleeding Tendencies Infectious Medical History: Reports: None Past Surgical History Past Surgical History: Reports: Herniorrhaphy, Orthopedic Surgery - Right ankle fracture repair Social History Information Source: Patient Lives with: Alone Smoking Status: Former Smoker - Uses smokeless tobacco/snuff Electronic Cigarette use?: No Frequency of Alcohol Use: None - Heavy alcohol use in the past, but quit more than 10 years ago Hx Recreational Drug Use: Yes - Very remote past Hx Prescription Drug Abuse: No - Advance Directive Resuscitation Status: Full Code Surrogate healthcare decision maker:: Jerome Hanleyi Family History Family History: CVA - Mother, DM, Malignancy. denies: CAD, Hypertension Parental Family History Reviewed: Yes Children Family History Reviewed: No Sibling(s) Family History Reviewed.: Yes Medication/Allergy Home Medications: No Home Medications 1 03/30/12 Oxycodone HCl/Acetaminophen [Percocet 5-325 mg Tablet] 1 - 2 tab PO ASDIR PRN 03/31/12 Promethazine HCl [Phenergan 25 mg Tablet] 25 mg PO PRN PRN 03/31/12 Albuterol Sulfate [Proair HFA Inhalation Aerosol 8.5 gm MDI] 2 puff IH Q4H PRN #1 mdi 05/01/17 Levofloxacin [Levaquin 750 mg Tablet] 750 mg PO DAILY #5 tablet 05/01/17 Prednisone [Deltasone 10 mg Tablet] 10 mg PO ASDIR PRN #21 tablet 05/01/17 Albuterol Sulfate [Proair HFA Inhalation Aerosol 8.5 gm MDI] 2 puff IH Q4H PRN #1 mdi 10/30/19 Azithromycin [Zithromax 250 mg Tablet] 250 mg PO ASDIR PRN #4 tablet 10/30/19 Prednisone [Deltasone 20 mg Tablet] 3 tab PO DAILY 4 Days #12 tablet 10/30/19 Allergies/Adverse Reactions: No Known Allergies Allergy (Verified 05/01/17 15:26) Review of Systems Constitutional: PRESENT: fever(s). ABSENT: chills Eyes: ABSENT: visual disturbances, other - Eye pain Ears: ABSENT: hearing changes, other - Ear pain Nose, Mouth, and Throat: PRESENT: other - Nasal congestion with clear discharge. ABSENT: headache(s), sore throat Cardiovascular: PRESENT: as per HPI, dyspnea on exertion. ABSENT: chest pain, palpitations Respiratory: PRESENT: as per HPI, cough, dyspnea, sputum Gastrointestinal: ABSENT: abdominal pain, constipation, diarrhea, nausea, vomiting Genitourinary: ABSENT: dysuria, hematuria Musculoskeletal: ABSENT: back pain, joint swelling, muscle weakness Integumentary: ABSENT: pruritus, rash Neurological: ABSENT: confusion, convulsions, focal weakness, memory loss, syncope Psychiatric: ABSENT: anxiety, depression Endocrine: ABSENT: cold intolerance, heat intolerance, polydipsia, polyphagia, polyuria Hematologic/Lymphatic: ABSENT: easy bleeding, easy bruising Allergic/Immunologic: ABSENT: seasonal rhinorrhea Physical Exam Vital Signs: Temp Pulse Resp BP Pulse Ox 99.7 F 145 H 34 H 137/84 H 98 01/14/20 18:49 01/14/20 15:53 01/14/20 18:26 01/14/20 18:26 01/14/20 19:00 Intake & Output 01/12/20 01/13/20 01/14/20 23:59 23:59 23:59 Intake Total 2049 Balance 2049 Weight 103.8 kg General appearance: PRESENT: no acute distress, cooperative, other - On supplemental oxygen via nasal cannula at the time of my evaluation Head exam: PRESENT: atraumatic, normocephalic Eye exam: PRESENT: conjunctiva pink. ABSENT: conjunctival injection, scleral icterus Ear exam: PRESENT: normal external ear exam. ABSENT: bleeding, drainage Mouth exam: PRESENT: dry mucosa, neck supple Neck exam: ABSENT: thyromegaly, tracheal deviation Respiratory exam: PRESENT: decreased breath sounds - Breath sounds are decreased at the bilateral bases, rales - Scattered coarse rales throughout both lung rangel primarily in the bases and most notable at the right posterior base., symmetrical, unlabored Cardiovascular exam: PRESENT: RRR, tachycardia. ABSENT: clicks, gallop, rubs Pulses: PRESENT: normal radial pulses, normal dorsalis pedis pul Vascular exam: PRESENT: normal capillary refill. ABSENT: pallor GI/Abdominal exam: PRESENT: normal bowel sounds, soft. ABSENT: tenderness Rectal exam: PRESENT: deferred Extremities exam: ABSENT: joint swelling, pedal edema Musculoskeletal exam: ABSENT: deformity, dislocation Neurological exam: PRESENT: alert, oriented to person, oriented to place, oriented to time, oriented to situation, CN II-XII grossly intact. ABSENT: motor sensory deficit Psychiatric exam: PRESENT: appropriate affect, normal mood Skin exam: PRESENT: dry, intact, warm. ABSENT: jaundice, rash, urticaria Results Laboratory Results: 01/14/20 15:45 01/14/20 15:45 01/14/20 01/14/20 01/14/20 15:45 15:45 15:45 WBC 12.8 H RBC 4.77 Hgb 14.4 Hct 42.0 MCV 88 MCH 30.2 MCHC 34.3 RDW 13.9 Plt Count 268 Seg Neutrophils % 84.1 H VBG pH 7.40 VBG pCO2 39.5 VBG HCO3 24.1 VBG Base Excess -0.4 Sodium 133.6 L Potassium 4.4 Chloride 97 L Carbon Dioxide 23 Anion Gap 14 BUN 17 Creatinine 0.95 Est GFR ( Amer) > 60 Glucose 199 H Lactic Acid Calcium 9.0 Total Bilirubin 1.0 AST 24 Alkaline Phosphatase 59 Total Protein 6.9 Albumin 4.2 01/14/20 15:45 WBC RBC Hgb Hct MCV MCH MCHC RDW Plt Count Seg Neutrophils % VBG pH VBG pCO2 VBG HCO3 VBG Base Excess Sodium Potassium Chloride Carbon Dioxide Anion Gap BUN Creatinine Est GFR ( Amer) Glucose Lactic Acid 2.8 H Calcium Total Bilirubin AST Alkaline Phosphatase Total Protein Albumin 01/14/20 01/14/20 15:45 15:45 Troponin I < 0.012 NT-Pro-B Natriuret Pep 24 Impressions: Chest X-Ray 01/14/20 15:52 IMPRESSION: NO ACUTE RADIOGRAPHIC FINDING IN THE CHEST. Chest/Abdomen CTA 01/14/20 16:33 IMPRESSION: 1. Multifocal pneumonia most prominent in the right lower lobe. 2. Moderate hepatic steatosis. 3. No pulmonary embolism. Assessment and Plan - Diagnosis (1) Multifocal pneumonia Is this a current diagnosis for this admission?: Yes (2) Acute respiratory failure with hypoxia Is this a current diagnosis for this admission?: Yes (3) SIRS (systemic inflammatory response syndrome) Is this a current diagnosis for this admission?: Yes (4) Hypertension Qualifiers: Hypertension type: essential hypertension Qualified Code(s): I10 - Essential (primary) hypertension Is this a current diagnosis for this admission?: Yes (5) Diabetes mellitus type 2 in nonobese Is this a current diagnosis for this admission?: Yes (6) Smokeless tobacco use Is this a current diagnosis for this admission?: Yes - Plan Summary Summary: Patient is admitted to the medical floor where he will receive routine supportive and symptomatic cares. He will receive an aggressive pulmonary toilet utilizing Xopenex, Atrovent, Pulmicort and Mucomyst delivered via nebulizers. In the emergency room treatment was initiated with intravenous cefepime and oral levofloxacin by the ER physician. He will receive supplemental oxygen via nasal cannula and/or airway pressure support devices s uch as BiPAP or CPAP in order to maintain an adequate oxygen saturation. He will receive ongoing high-volume IV fluids over the first 24 hours of admission. Serial lactic acid levels will be obtained and his vital signs were monitored closely. Before meals and at bedtime Accu-Cheks will be obtained with sliding scale insulin for hyperglycemia and a hypoglycemic protocol in place. A cardiac and diabetic restricted diet will be ordered. Blood cultures and coronavirus screening were performed in ER with results pending. CBCs, metabolic profiles, magnesium levels and arterial or venous blood gases will be obtained as needed. Patient will be continued on his usual medications as soon as his home medication list has been verified and reconciled. A nicotine replacement patch will be available for the patient's use, if desired. - Time Time Spent with patient: 25-34 minutes Medications reviewed and adjusted accordingly: Yes Anticipated discharge: Home with Homehealth - Inpatient Certification Based on my medical assessment, after consideration of the patient's comorbid ities, presenting symptoms, or acuity I expect that the services needed warrant INPATIENT care.: Yes I certify that my determination is in accordance with my understanding of Medicare's requirements for reasonable and necessary INPATIENT services [42 CFR 412.3e].: Yes Medical Necessity: Need Close Monitoring Due to Risk of Patient Decompensation, Need For IV Fluids, Need for Nebulizer Therapy and Monitoring of Response, Need for IV Antibiotics, Risk of Complication if Not Cared For in Hospital
[2020-01-15] MEDS: RINGERS SOLUTION,LACTATED 1,000 ML IV PRN ×3 (01:25→10:31)
[2020-01-15] MEDS ORDERED: CEFEPIME 2 GM/D5W RTU 2 GM/50 ML RTUPB IV ONE (05:22)
[2020-01-15 05:31] LABS: HEMOGLOBIN 12.9 g/dL (13.5-17.0); MEAN CORPUSCULAR HEMOGLOBIN 29.8 pg (27.0-33.4); MEAN CORPUSCULAR HGB CONC 33.2 g/dL (32.0-36.0); MEAN CORPUSCULAR VOLUME 90 fl (80-97); PLATELET COUNT 205 10^3/uL (150-450); RED BLOOD COUNT 4.35 10^6/uL (4.35-5.55); RED CELL DISTRIBUTION WIDTH 13.9 % (11.5-14.0); WHITE BLOOD COUNT 13.7 10^3/uL (4.0-10.5)
[2020-01-15 05:51] LABS: ANION GAP 7 (5-19); BLOOD UREA NITROGEN 14 mg/dL (7-20); CALCIUM 8.6 mg/dL (8.4-10.2); CARBON DIOXIDE 25 mmol/L (22-30); CHLORIDE 105 mmol/L (98-107); CHOLESTEROL 82.67 mg/dL (0-200); GLUCOSE 250 mg/dL (75-110); POTASSIUM 4.9 mmol/L (3.6-5.0); TRIGLYCERIDES 60 mg/dL (<150)
[2020-01-15] MEDS: HEPARIN SOD (PORCINE) 5,000 UNIT/ML 1 ML VIAL SUBCUT SCH ×3 (05:59→22:09)
[2020-01-15] MEDS ORDERED: CEFEPIME 2 GM/D5W RTU 2 GM/50 ML RTUPB IV SCH (06:00)
[2020-01-15 06:01] LABS: DIRECT LDL 45 mg/dL (<100)
[2020-01-15] MEDS: LEVALBUTEROL HCL NEB 1.25 MG/3 ML AMPUL NEB SCH ×2 (09:00→15:45)
[2020-01-15] MEDS: BUDESONIDE NEB 0.5 MG/2 ML AMPUL NEB SCH ×2 (09:00→20:06)
[2020-01-15] MEDS: IPRATROPIUM BROMIDE 0.02% NEB 0.5 MG/2.5 ML AMPUL NEB SCH ×2 (09:00→15:45)
[2020-01-15] MEDS: ACETYLCYSTEINE 20% SOLN 800 MG/4 ML VIAL.NEB NEB SCH ×2 (09:00→20:05)
[2020-01-15] MEDS ORDERED: LEVOFLOXACIN 750 MG/D5W RTU 150 ML IV SCH (10:00)
[2020-01-15] MEDS: FAMOTIDINE 20 MG TABLET PO SCH ×2 (10:20→22:09)
[2020-01-15] MEDS: LEVOFLOXACIN 750 MG TABLET PO SCH (10:20)
[2020-01-15] MEDS: INSULIN REG, HUMAN 100 UNIT/ML 3 ML VIAL (PYX) SUBCUT SCH ×4 (10:21→22:10)
[2020-01-15] MEDS: GUAIFENESIN SYRP 200 MG/10 ML UDC PO PRN ×2 (10:31→22:09)
--- NOTE | 2020-01-15 14:07 | PDOC PROGRESS REPORT ---
Subjective Progress Note for:: 01/15/20 Subjective:: The patient was just up to the bathroom without nasal cannula in place. The tubing was too short. He is somewhat short of breath and has resumed oxygen by nasal cannula. His biggest complaint is still the cough. His white cell count is slightly higher today than yesterday but he is afebrile. Reason For Visit: MULTIFOCAL PNEUMONIA Physical Exam Vital Signs: Temp Pulse Resp BP Pulse Ox 98.4 F 86 14 107/59 L 98 01/15/20 11:32 01/15/20 11:32 01/15/20 11:32 01/15/20 11:32 01/15/20 11:32 Intake & Output 01/14/20 01/15/20 01/16/20 06:59 06:59 06:59 Intake Total 4290 1120 Balance 4290 1120 Weight 105.4 kg General appearance: PRESENT: cooperative, mild distress, obese, well-developed Head exam: PRESENT: atraumatic, normocephalic Ear exam: PRESENT: normal external ear exam. ABSENT: bleeding, drainage Mouth exam: PRESENT: moist, tongue midline Respiratory exam: PRESENT: rhonchi, symmetrical, unlabored. ABSENT: accessory muscle use, prolonged expiratory phas, rales, tachypnea, wheezes Cardiovascular exam: PRESENT: RRR, +S1, +S2. ABSENT: diastolic murmur, systolic murmur GI/Abdominal exam: PRESENT: normal bowel sounds, soft. ABSENT: distended, guarding, tenderness Rectal exam: PRESENT: deferred Gentrourinary exam: ABSENT: indwelling catheter Extremities exam: ABSENT: pedal edema Musculoskeletal exam: PRESENT: ambulatory, full ROM, normal inspection. ABSENT: deformity Neurological exam: PRESENT: alert, awake, oriented to person, oriented to place, oriented to time, oriented to situation, CN II-XII grossly intact, other - Slight lisp. ABSENT: altered, motor sensory deficit Psychiatric exam: PRESENT: appropriate affect, normal mood. ABSENT: agitated, anxious Focused psych exam: ABSENT: delusional, paranoid, restlessness Skin exam: PRESENT: dry, normal color, warm. ABSENT: rash Results Laboratory Results: 01/15/20 05:13 01/15/20 05:13 01/14/20 01/14/20 01/14/20 15:45 15:45 15:45 WBC 12.8 H RBC 4.77 Hgb 14.4 Hct 42.0 MCV 88 MCH 30.2 MCHC 34.3 RDW 13.9 Plt Count 268 Seg Neutrophils % 84.1 H VBG pH 7.40 VBG pCO2 39.5 VBG HCO3 24.1 VBG Base Excess -0.4 Sodium 133.6 L Potassium 4.4 Chloride 97 L Carbon Dioxide 23 Anion Gap 14 BUN 17 Creatinine 0.95 Est GFR ( Amer) > 60 Glucose 199 H Lactic Acid Calcium 9.0 Total Bilirubin 1.0 AST 24 Alkaline Phosphatase 59 Total Protein 6.9 Albumin 4.2 Triglycerides Cholesterol LDL Cholesterol Direct VLDL Cholesterol HDL Cholesterol TSH 01/14/20 01/14/20 01/14/20 15:45 19:22 22:29 WBC RBC Hgb Hct MCV MCH MCHC RDW Plt Count Seg Neutrophils % VBG pH VBG pCO2 VBG HCO3 VBG Base Excess Sodium Potassium Chloride Carbon Dioxide Anion Gap BUN Creatinine Est GFR ( Amer) Glucose Lactic Acid 2.8 H 1.7 1.9 Calcium Total Bilirubin AST Alkaline Phosphatase Total Protein Albumin Triglycerides Cholesterol LDL Cholesterol Direct VLDL Cholesterol HDL Cholesterol TSH 01/15/20 01/15/20 01/15/20 05:13 05:13 05:13 WBC 13.7 H RBC 4.35 Hgb 12.9 L Hct 39.0 MCV 90 MCH 29.8 MCHC 33.2 RDW 13.9 Plt Count 205 Seg Neutrophils % VBG pH VBG pCO2 VBG HCO3 VBG Base Excess Sodium 136.5 L Potassium 4.9 Chloride 105 Carbon Dioxide 25 Anion Gap 7 BUN 14 Creatinine 0.70 Est GFR ( Amer) > 60 Glucose 250 H Lactic Acid Calcium 8.6 Total Bilirubin AST Alkaline Phosphatase Total Protein Albumin Triglycerides 60 Cholesterol 82.67 LDL Cholesterol Direct 45 VLDL Cholesterol 12.0 HDL Cholesterol 35 L TSH 0.67 01/14/20 01/14/20 15:45 15:45 Troponin I < 0.012 NT-Pro-B Natriuret Pep 24 Impressions: Chest X-Ray 01/14/20 15:52 IMPRESSION: NO ACUTE RADIOGRAPHIC FINDING IN THE CHEST. Chest/Abdomen CTA 01/14/20 16:33 IMPRESSION: 1. Multifocal pneumonia most prominent in the right lower lobe. 2. Moderate hepatic steatosis. 3. No pulmonary embolism. Assessment and Plan - Diagnosis (1) Multifocal pneumonia Is this a current diagnosis for this admission?: Yes Plan: 01/15/2020 The patient has multifocal pneumonia documented by CT scan. He exhibits respiratory failure with hypoxia, fever, elevated white blood cell count, cough and increased work of breathing. He was quite tachycardic as well. His blood pressure was high initially and then dropped significantly. He did not require pressors but he did receive aggressive IV fluid. Today he still sounds rhonchorous sporadically. There was no wheeze. He is on cefepime and levofloxacin at this time. Because therapy has started I will continue with this regimen. (2) Acute respiratory failure with hypoxia Is this a current diagnosis for this admission?: Yes Plan: 01/15/2020 The patient is not on oxygen at home. Because of the pneumonia he now requires 3 L of oxygen to keep saturations greater than or equal to 90%. Continue antibiotics and nebulizers and wean back to room air as tolerated. (3) SIRS (systemic inflammatory response syndrome) Is this a current diagnosis for this admission?: Yes Plan: 01/15/2020 The patient is improved with antibiotics and fluids. His map was as high as 105 and then dropped to 74. His lactic acid has normalized. Continue to monitor closely with the regular vital signs and laboratory studies. (4) Diabetes mellitus type 2 in nonobese Is this a current diagnosis for this admission?: Yes Plan: 01/15/2020 The patient's hemoglobin A1c was 7.3 which is very good. We will continue his oral medications and utilize sliding scale coverage for his Accu-Cheks for now. When appropriate we will gradually add back his Lantus. (5) Hypertension Qualifiers: Hypertension type: essential hypertension Qualified Code(s): I10 - Essential (primary) hypertension Is this a current diagnosis for this admission?: Yes Plan: 01/15/2020 The patient was markedly hypertensive on initial vital signs in the emergency department. His systolic blood pressure was as high as 195. His mean arterial pressure was as high as 105 and then dropped to 74. He is currently stable. I will resume his lisinopril with parameters. (6) Hyperlipidemia associated with type 2 diabetes mellitus Is this a current diagnosis for this admission?: Yes Plan: 01/15/2020 With his statin therapy his lipid profile is very good. Continue statin therapy - Plan Summary Summary: Patient is admitted to the medical floor where he will receive routine supportive and symptomatic cares. He will receive an aggressive pulmonary toilet utilizing Xopenex, Atrovent, Pulmicort and Mucomyst delivered via nebulizers. In the emergency room treatment was initiated with intravenous cef epime and oral levofloxacin by the ER physician. He will receive supplemental oxygen via nasal cannula and/or airway pressure support devices such as BiPAP or CPAP in order to maintain an adequate oxygen saturation. He will receive ongoing high-volume IV fluids over the first 24 hours of admission. Serial lactic acid levels will be obtained and his vital signs were monitored closely. Before meals and at bedtime Accu-Cheks will be obtained with sliding scale insulin for hyperglycemia and a hypoglycemic protocol in place. A cardiac and diabetic restricted diet will be ordered. Blood cultures and coronavirus screening were performed in ER with results pending. CBCs, metabolic profiles, magnesium levels and arterial or venous blood gases will be obtained as needed. Patient will be continued on his usual medications as soon as his home medication list has been verified and reconciled. A nicotine replacement patch will be available for the patient's use, if desired. - Time Time Spent with patient: 15-24 minutes Medications reviewed and adjusted accordingly: Yes Anticipated discharge: Home
[2020-01-15] MEDS: METFORMIN HCL 500 MG TABLET PO SCH (17:33)
[2020-01-15] MEDS: CEFEPIME HCL 2 GM in DEXTROSE 5%-WATER 50 ML IV SCH (17:34)
[2020-01-15] MEDS: ATORVASTATIN CALCIUM 20 MG TABLET PO SCH (22:09)
[2020-01-16] MEDS: LEVALBUTEROL HCL NEB 1.25 MG/3 ML AMPUL NEB SCH ×3 (01:02→16:18)
[2020-01-16] MEDS: IPRATROPIUM BROMIDE 0.02% NEB 0.5 MG/2.5 ML AMPUL NEB SCH ×3 (01:02→16:18)
[2020-01-16] MEDS: CEFEPIME HCL 2 GM in DEXTROSE 5%-WATER 50 ML IV SCH ×2 (05:26→17:39)
[2020-01-16] MEDS: HEPARIN SOD (PORCINE) 5,000 UNIT/ML 1 ML VIAL SUBCUT SCH ×3 (05:26→21:57)
[2020-01-16 06:10] LABS: HEMATOCRIT 36.4 % (37.9-51.0); MEAN CORPUSCULAR HEMOGLOBIN 29.5 pg (27.0-33.4); MEAN CORPUSCULAR HGB CONC 32.9 g/dL (32.0-36.0); MEAN CORPUSCULAR VOLUME 90 fl (80-97); PLATELET COUNT 200 10^3/uL (150-450); RED BLOOD COUNT 4.06 10^6/uL (4.35-5.55); RED CELL DISTRIBUTION WIDTH 13.5 % (11.5-14.0); WHITE BLOOD COUNT 12.7 10^3/uL (4.0-10.5)
[2020-01-16 06:31] LABS: ANION GAP 10 (5-19); BLOOD UREA NITROGEN 16 mg/dL (7-20); CALCIUM 8.3 mg/dL (8.4-10.2); CARBON DIOXIDE 26 mmol/L (22-30); CHLORIDE 102 mmol/L (98-107); GLUCOSE 106 mg/dL (75-110)
[2020-01-16] MEDS: INSULIN REG, HUMAN 100 UNIT/ML 3 ML VIAL (PYX) SUBCUT SCH ×4 (08:27→22:44)
[2020-01-16] MEDS: METFORMIN HCL 500 MG TABLET PO SCH ×2 (08:44→17:38)
[2020-01-16] MEDS: ACETYLCYSTEINE 20% SOLN 800 MG/4 ML VIAL.NEB NEB SCH ×2 (09:51→20:54)
[2020-01-16] MEDS: BUDESONIDE NEB 0.5 MG/2 ML AMPUL NEB SCH ×2 (09:51→20:54)
[2020-01-16] MEDS ORDERED: LISINOPRIL 5 MG TABLET PO SCH (10:00)
[2020-01-16] MEDS: FAMOTIDINE 20 MG TABLET PO SCH ×2 (10:34→21:58)
[2020-01-16] MEDS: LEVOFLOXACIN 750 MG TABLET PO SCH (10:43)
[2020-01-16] MEDS: SITAGLIPTIN PHOSPHATE 50 MG TABLET PO SCH (10:43)
[2020-01-16] MEDS: ASPIRIN 81 MG TABLET, ENT COATED PO SCH (10:43)
[2020-01-16] MEDS: LISINOPRIL 5 MG TABLET PO SCH (10:43)
--- NOTE | 2020-01-16 15:30 | PDOC PROGRESS REPORT ---
Subjective Progress Note for:: 01/16/20 Subjective:: Still with a very congested cough. Resting comfortably. He admits that he is feeling slightly better. Covid-19 results still not available. Reason For Visit: MULTIFOCAL PNEUMONIA Physical Exam Vital Signs: Temp Pulse Resp BP Pulse Ox 98.6 F 90 16 135/68 H 95 01/16/20 08:21 01/16/20 09:50 01/16/20 09:50 01/16/20 08:21 01/16/20 09:50 Intake & Output 01/15/20 01/16/20 01/17/20 06:59 06:59 06:59 Intake Total 4290 3610 260 Balance 4290 3610 260 Weight 105.4 kg 107 kg General appearance: PRESENT: no acute distress, cooperative, well-developed Head exam: PRESENT: atraumatic, normocephalic Respiratory exam: PRESENT: rhonchi, symmetrical, unlabored. ABSENT: prolonged expiratory phas, tachypnea, wheezes Cardiovascular exam: PRESENT: RRR, +S1, +S2 GI/Abdominal exam: PRESENT: normal bowel sounds, soft. ABSENT: distended, tenderness Rectal exam: PRESENT: deferred Gentrourinary exam: ABSENT: indwelling catheter Extremities exam: ABSENT: pedal edema Musculoskeletal exam: PRESENT: ambulatory, normal inspection Neurological exam: PRESENT: alert, awake, oriented to person, oriented to place, oriented to time, oriented to situation, CN II-XII grossly intact Psychiatric exam: PRESENT: appropriate affect. ABSENT: agitated, anxious Results Laboratory Results: 01/16/20 05:40 01/16/20 05:40 01/16/20 01/16/20 05:40 05:40 WBC 12.7 H RBC 4.06 L Hgb 12.0 L Hct 36.4 L MCV 90 MCH 29.5 MCHC 32.9 RDW 13.5 Plt Count 200 Sodium 137.9 Potassium 4.0 Chloride 102 Carbon Dioxide 26 Anion Gap 10 BUN 16 Creatinine 0.73 Est GFR ( Amer) > 60 Glucose 106 Calcium 8.3 L 01/14/20 01/14/20 15:45 15:45 Troponin I < 0.012 NT-Pro-B Natriuret Pep 24 Impressions: Chest X-Ray 01/14/20 15:52 IMPRESSION: NO ACUTE RADIOGRAPHIC FINDING IN THE CHEST. Chest/Abdomen CTA 01/14/20 16:33 IMPRESSION: 1. Multifocal pneumonia most prominent in the right lower lobe. 2. Moderate hepatic steatosis. 3. No pulmonary embolism. Assessment and Plan - Diagnosis (1) Multifocal pneumonia Is this a current diagnosis for this admission?: Yes Plan: 01/15/2020 The patient has multifocal pneumonia documented by CT scan. He exhibits respiratory failure with hypoxia, fever, elevated white blood cell count, cough and increased work of breathing. He was quite tachycardic as well. His blood pressure was high initially and then dropped significantly. He did not require pressors but he did receive aggressive IV fluid. Today he still sounds rhonc horous sporadically. There was no wheeze. He is on cefepime and levofloxacin at this time. Because therapy has started I will continue with this regimen. 01/16/2020 Still with very congested cough. I have encouraged the patient to cough up and spit out any mucus. Continue guaifenesin and antibiotics (2) Acute respiratory failure with hypoxia Is this a current diagnosis for this admission?: Yes Plan: 01/15/2020 The patient is not on oxygen at home. Because of the pneumonia he now requires 3 L of oxygen to keep saturations greater than or equal to 90%. Continue antibiotics and nebulizers and wean back to room air as tolerated. 01/16/2020 Raining back on nebulizer treatments to minimize air isolation and exposure. We will try Trelegy. Continue to wean towards room air. (3) Diabetes mellitus type 2 in nonobese Is this a current diagnosis for this admission?: Yes Plan: 01/15/2020 The patient's hemoglobin A1c was 7.3 which is very good. We will continue his oral medications and utilize sliding scale coverage for his Accu-Cheks for now. When appropriate we will gradually add back his Lantus. 01/16/2020 Excellent control. Continue same regimen. (4) Hypertension Qualifiers: Hypertension type: essential hypertension Qualified Code(s): I10 - Essential (primary) hypertension Is this a current diagnosis for this admission?: Yes Plan: 01/15/2020 The patient was markedly hypertensive on initial vital signs in the emergency department. His systolic blood pressure was as high as 195. His mean arterial pressure was as high as 105 and then dropped to 74. He is currently stable. I will resume his lisinopril with parameters. 01/16/2020 Continue current regimen. Good blood pressure control. (5) Hyperlipidemia associated with type 2 diabetes mellitus Is this a current diagnosis for this admission?: Yes Plan: 01/15/2020 With his statin therapy his lipid profile is very good. Continue statin therapy (6) SIRS (systemic inflammatory response syndrome) Is this a current diagnosis for this admission?: Yes Plan: 01/15/2020 The patient is improved with antibiotics and fluids. His map was as high as 105 and then dropped to 74. His lactic acid has normalized. Continue to monitor closely with the regular vital signs and laboratory studies. 01/16/2020 Resolved - Plan Summary Summary: Patient is admitted to the medical floor where he will receive routine supportive and symptomatic cares. He will receive an aggressive pulmonary toilet utilizing Xopenex, Atrovent, Pulmicort and Mucomyst delivered via nebulizers. In the emergency room treatment was initiated with intravenous cefepime and oral levofloxacin by the ER physician. He will receive supplemental oxygen via nasal cannula and/or airway pressure support devices such as BiPAP or CPAP in order to maintain an adequate oxygen saturation. He will receive ongoing high-volume IV fluids over the first 24 hours of admission. Serial lactic acid levels will be obtained and his vital signs were monitored closely. Before meals and at bedtime Accu-Cheks will be obtained with sliding scale insulin for hyperglycemia and a hypoglycemic protocol in place. A cardiac and diabetic restricted diet will be ordered. Blood cultures and coronavirus screening were performed in ER with results pending. CBCs, metabolic profiles, magnesium levels and arterial or venous blood gases will be obtained as needed. Patient will be continued on his usual medications as soon as his home medic ation list has been verified and reconciled. A nicotine replacement patch will be available for the patient's use, if desired. - Time Time Spent with patient: 15-24 minutes Medications reviewed and adjusted accordingly: Yes Anticipated discharge: Home
[2020-01-16] MEDS: GUAIFENESIN SYRP 200 MG/10 ML UDC PO PRN (21:58)
[2020-01-16] MEDS: ATORVASTATIN CALCIUM 20 MG TABLET PO SCH (21:58)
[2020-01-17] MEDS: LEVALBUTEROL HCL NEB 1.25 MG/3 ML AMPUL NEB SCH ×3 (00:21→15:51)
[2020-01-17] MEDS: IPRATROPIUM BROMIDE 0.02% NEB 0.5 MG/2.5 ML AMPUL NEB SCH ×3 (00:21→15:51)
[2020-01-17 05:25] LABS: HEMOGLOBIN 12.6 g/dL (13.5-17.0); MEAN CORPUSCULAR HEMOGLOBIN 29.5 pg (27.0-33.4); MEAN CORPUSCULAR HGB CONC 33.2 g/dL (32.0-36.0); MEAN CORPUSCULAR VOLUME 89 fl (80-97); PLATELET COUNT 244 10^3/uL (150-450); RED BLOOD COUNT 4.27 10^6/uL (4.35-5.55); RED CELL DISTRIBUTION WIDTH 13.5 % (11.5-14.0); WHITE BLOOD COUNT 10.1 10^3/uL (4.0-10.5)
[2020-01-17] MEDS: HEPARIN SOD (PORCINE) 5,000 UNIT/ML 1 ML VIAL SUBCUT SCH ×3 (05:25→21:50)
[2020-01-17] MEDS: CEFEPIME HCL 2 GM in DEXTROSE 5%-WATER 50 ML IV SCH ×2 (05:26→17:18)
[2020-01-17 05:52] LABS: ANION GAP 9 (5-19); BLOOD UREA NITROGEN 16 mg/dL (7-20); CALCIUM 8.8 mg/dL (8.4-10.2); CARBON DIOXIDE 29 mmol/L (22-30); CHLORIDE 99 mmol/L (98-107); GLUCOSE 100 mg/dL (75-110); POTASSIUM 4.2 mmol/L (3.6-5.0)
[2020-01-17] MEDS: BUDESONIDE NEB 0.5 MG/2 ML AMPUL NEB SCH ×2 (08:47→20:16)
[2020-01-17] MEDS: ACETYLCYSTEINE 20% SOLN 800 MG/4 ML VIAL.NEB NEB SCH ×2 (08:47→20:16)
[2020-01-17] MEDS: INSULIN REG, HUMAN 100 UNIT/ML 3 ML VIAL (PYX) SUBCUT SCH ×4 (09:26→21:49)
[2020-01-17] MEDS: ASPIRIN 81 MG TABLET, ENT COATED PO SCH (09:28)
[2020-01-17] MEDS: METFORMIN HCL 500 MG TABLET PO SCH ×2 (09:28→17:18)
[2020-01-17] MEDS: LISINOPRIL 5 MG TABLET PO SCH (09:28)
[2020-01-17] MEDS: FAMOTIDINE 20 MG TABLET PO SCH ×2 (09:28→21:50)
[2020-01-17] MEDS: SITAGLIPTIN PHOSPHATE 50 MG TABLET PO SCH (09:28)
[2020-01-17] MEDS: LEVOFLOXACIN 750 MG TABLET PO SCH (09:28)
--- NOTE | 2020-01-17 16:43 | PDOC PROGRESS REPORT ---
Subjective Progress Note for:: 01/17/20 Subjective:: No adverse events overnight. No new complaints. Vital signs been stable. He has had a congested cough. Reason For Visit: MULTIFOCAL PNEUMONIA Physical Exam Vital Signs: Temp Pulse Resp BP Pulse Ox 98.3 F 95 17 106/91 H 91 L 01/17/20 15:40 01/17/20 15:40 01/17/20 15:40 01/17/20 15:40 01/17/20 15:40 Intake & Output 01/16/20 01/17/20 01/18/20 06:59 06:59 06:59 Intake Total 3610 910 50 Output Total 3 Balance 3610 907 50 Weight 107 kg 79.5 kg General appearance: PRESENT: no acute distress, cooperative, disheveled Respiratory exam: PRESENT: decreased breath sounds, symmetrical, unlabored. ABSENT: accessory muscle use, chest wall tenderness, crackles, prolonged expiratory phas, retraction, rhonchi, tachypnea, wheezes Cardiovascular exam: PRESENT: RRR, +S1, +S2 Pulses: PRESENT: normal carotid pulses Vascular exam: PRESENT: normal capillary refill GI/Abdominal exam: PRESENT: normal bowel sounds, soft. ABSENT: distended, guarding, rebound, tenderness Extremities exam: ABSENT: clubbing, pedal edema Musculoskeletal exam: PRESENT: normal inspection. ABSENT: deformity Neurological exam: PRESENT: alert, awake, oriented to person, oriented to place, oriented to situation Psychiatric exam: PRESENT: appropriate affect, normal mood Skin exam: PRESENT: dry, warm Results Laboratory Results: 01/17/20 05:10 01/17/20 05:10 01/17/20 01/17/20 05:10 05:10 WBC 10.1 RBC 4.27 L Hgb 12.6 L Hct 38.0 MCV 89 MCH 29.5 MCHC 33.2 RDW 13.5 Plt Count 244 Sodium 136.5 L Potassium 4.2 Chloride 99 Carbon Dioxide 29 Anion Gap 9 BUN 16 Creatinine 0.88 Est GFR ( Amer) > 60 Glucose 100 Calcium 8.8 01/14/20 15:45 Throat Throat Culture - Final NORMAL CECY 01/14/20 01/14/20 15:45 15:45 Troponin I < 0.012 NT-Pro-B Natriuret Pep 24 Impressions: Chest X-Ray 01/14/20 15:52 IMPRESSION: NO ACUTE RADIOGRAPHIC FINDING IN THE CHEST. Chest/Abdomen CTA 01/14/20 16:33 IMPRESSION: 1. Multifocal pneumonia most prominent in the right lower lobe. 2. Moderate hepatic steatosis. 3. No pulmonary embolism. Assessment and Plan - Diagnosis (1) Acute respiratory failure with hypoxia Is this a current diagnosis for this admission?: Yes Plan: Currently on stable on level of oxygen support, wean oxygen as tolerated (2) Diabetes mellitus type 2 in nonobese Is this a current diagnosis for this admission?: Yes Plan: Continue consistent carbohydrate diet and sliding scale insulin (3) Multifocal pneumonia Is this a current diagnosis for this admission?: Yes Plan: Continue current antibiotics, showing a response, cultures are pending - Plan Summary Summary: Patient is admitted to the medical floor where he will receive routine supportive and symptomatic cares. He will receive an aggressive pulmonary toilet utilizing Xopenex, Atrovent, Pulmicort and Mucomyst delivered via nebulizers. In the emergency room treatment was initiated with intravenous cefepime and oral levofloxacin by the ER physician. He will receive supplemental oxygen via nasal cannula and/or airway pressure support devices such as BiPAP or CPAP in order to maintain an adequate oxygen saturation. He will receive ongoing high-volume IV fluids over the first 24 hours of admission. Serial lactic acid levels will be obtained and his vital signs were monitored closely. Before meals and at bedtime Accu-Cheks will be obtained with sliding scale insulin for hyperglycemia and a hypoglycemic protocol in place. A cardiac and diabetic restricted diet will be ordered. Blood cultures and coronavirus screening were performed in ER with results pending. CBCs, metabolic profiles, magnesium levels and arterial or venous blood gases will be obtained as needed. Patient will be continued on his usual medications as soon as his home medication list has been verified and reconciled. A nicotine replacement patch will be available for the patient's use, if desired. - Time Time Spent with patient: 15-24 minutes
[2020-01-17] MEDS: ATORVASTATIN CALCIUM 20 MG TABLET PO SCH (21:50)
[2020-01-18] MEDS: LEVALBUTEROL HCL NEB 1.25 MG/3 ML AMPUL NEB SCH ×3 (00:06→17:28)
[2020-01-18] MEDS: IPRATROPIUM BROMIDE 0.02% NEB 0.5 MG/2.5 ML AMPUL NEB SCH ×3 (00:06→17:52)
[2020-01-18] MEDS: HEPARIN SOD (PORCINE) 5,000 UNIT/ML 1 ML VIAL SUBCUT SCH ×3 (06:14→22:10)
[2020-01-18] MEDS: CEFEPIME HCL 2 GM in DEXTROSE 5%-WATER 50 ML IV SCH ×2 (06:14→17:00)
[2020-01-18] MEDS: BUDESONIDE NEB 0.5 MG/2 ML AMPUL NEB SCH (07:46)
[2020-01-18] MEDS: ACETYLCYSTEINE 20% SOLN 800 MG/4 ML VIAL.NEB NEB SCH (07:47)
[2020-01-18] MEDS: INSULIN REG, HUMAN 100 UNIT/ML 3 ML VIAL (PYX) SUBCUT SCH ×4 (08:59→22:29)
[2020-01-18] MEDS: METFORMIN HCL 500 MG TABLET PO SCH ×2 (09:11→17:00)
[2020-01-18] MEDS: SITAGLIPTIN PHOSPHATE 50 MG TABLET PO SCH (09:11)
[2020-01-18] MEDS: ASPIRIN 81 MG TABLET, ENT COATED PO SCH (09:12)
[2020-01-18] MEDS: LISINOPRIL 5 MG TABLET PO SCH (09:12)
[2020-01-18] MEDS: LEVOFLOXACIN 750 MG TABLET PO SCH (09:12)
[2020-01-18] MEDS: FAMOTIDINE 20 MG TABLET PO SCH ×2 (09:12→22:10)
[2020-01-18] MEDS ORDERED: ALBUTEROL SULFATE HFA (90 MCG/PUFF) 8 GM MDI IH PRN (16:50)
--- NOTE | 2020-01-18 16:53 | PDOC PROGRESS REPORT ---
Subjective Progress Note for:: 01/18/20 Subjective:: No adverse events overnight. No new complaints. Vital signs been stable. He has had a congested cough but it has improved and he is bringing up more sputum now and feels better. He is down to 1 L per nasal cannula. Reason For Visit: MULTIFOCAL PNEUMONIA Physical Exam Vital Signs: Temp Pulse Resp BP Pulse Ox 97.8 F 88 20 127/71 H 93 01/18/20 13:08 01/18/20 13:08 01/18/20 13:08 01/18/20 13:08 01/18/20 13:08 Intake & Output 01/17/20 01/18/20 01/19/20 06:59 06:59 06:59 Intake Total 910 860 50 Output Total 3 352 Balance 907 508 50 Weight 79.5 kg 95.2 kg General appearance: PRESENT: no acute distress, cooperative, disheveled Respiratory exam: PRESENT: decreased breath sounds, symmetrical, unlabored. ABSENT: accessory muscle use, chest wall tenderness, crackles, prolonged expiratory phas, retraction, rhonchi, tachypnea, wheezes Cardiovascular exam: PRESENT: RRR, +S1, +S2 Pulses: PRESENT: normal carotid pulses Vascular exam: PRESENT: normal capillary refill GI/Abdominal exam: PRESENT: normal bowel sounds, soft. ABSENT: distended, guarding, rebound, tenderness Extremities exam: ABSENT: clubbing, pedal edema Musculoskeletal exam: PRESENT: normal inspection. ABSENT: deformity Neurological exam: PRESENT: alert, awake, oriented to person, oriented to place, oriented to situation Psychiatric exam: PRESENT: appropriate affect, normal mood Skin exam: PRESENT: dry, warm Results Laboratory Results: 01/17/20 05:10 01/17/20 05:10 01/14/20 01/14/20 15:45 15:45 Troponin I < 0.012 NT-Pro-B Natriuret Pep 24 Impressions: Chest X-Ray 01/14/20 15:52 IMPRESSION: NO ACUTE RADIOGRAPHIC FINDING IN THE CHEST. Chest/Abdomen CTA 01/14/20 16:33 IMPRESSION: 1. Multifocal pneumonia most prominent in the right lower lobe. 2. Moderate hepatic steatosis. 3. No pulmonary embolism. Assessment and Plan - Diagnosis (1) Acute respiratory failure with hypoxia Is this a current diagnosis for this admission?: Yes Plan: Currently on stable on level of oxygen support, wean oxygen as tolerated. Down to 1 L now, will try to decrease oxygen even more and ambulate him. (2) Diabetes mellitus type 2 in nonobese Is this a current diagnosis for this admission?: Yes Plan: Continue consistent carbohydrate diet and sliding scale insulin (3) Multifocal pneumonia Is this a current diagnosis for this admission?: Yes Plan: Continue current antibiotics, showing a response, cultures are pending. Coronavirus testing is pending. - Plan Summary Summary: Patient is admitted to the medical floor where he will receive routine supportive and symptomatic cares. He will receive an aggressive pulmonary toilet utilizing Xopenex, Atrovent, Pulmicort and Mucomyst delivered via nebulizers. In the emergency room treatment was initiated with intravenous cefepime and oral levofloxacin by the ER physician. He will receive supplemental oxygen via nasal cannula and/or airway pressure support devices such as BiPAP or CPAP in order to maintain an adequate oxygen saturation. He will receive ongoing high-volume IV fluids over the first 24 hours of admission. Serial lactic acid levels will be obtained and his vital signs were monitored closely. Before meals and at bedtime Accu-Cheks will be obtained with sliding scale insulin for hyperglycemia and a hypoglycemic protocol in place. A cardiac and diabetic restricted diet will be ordered. Blood cultures and coronavirus screening were performed in ER with results pending. CBCs, metabolic profiles, magnesium levels and arterial or venous blood gases will be obtained as needed. Patient will be continued on his usual medications as soon as his home medication list has been verified and reconciled. A nicotine replacement patch will be available for the patient's use, if desired. - Time Time Spent with patient: 15-24 minutes
[2020-01-18] MEDS: ATORVASTATIN CALCIUM 20 MG TABLET PO SCH (22:10)
[2020-01-19] MEDS: HEPARIN SOD (PORCINE) 5,000 UNIT/ML 1 ML VIAL SUBCUT SCH ×3 (05:03→21:47)
[2020-01-19] MEDS: CEFEPIME HCL 2 GM in DEXTROSE 5%-WATER 50 ML IV SCH ×2 (05:03→17:02)
[2020-01-19] MEDS: INSULIN REG, HUMAN 100 UNIT/ML 3 ML VIAL (PYX) SUBCUT SCH ×4 (08:41→21:16)
[2020-01-19] MEDS: METFORMIN HCL 500 MG TABLET PO SCH ×2 (08:55→16:58)
[2020-01-19] MEDS: ASPIRIN 81 MG TABLET, ENT COATED PO SCH (09:02)
[2020-01-19] MEDS: SITAGLIPTIN PHOSPHATE 50 MG TABLET PO SCH (09:03)
[2020-01-19] MEDS: LEVOFLOXACIN 750 MG TABLET PO SCH (09:03)
[2020-01-19] MEDS: FAMOTIDINE 20 MG TABLET PO SCH ×2 (09:03→21:47)
[2020-01-19] MEDS: LISINOPRIL 5 MG TABLET PO SCH (09:04)
--- NOTE | 2020-01-19 12:31 | PDOC PROGRESS REPORT ---
Subjective Progress Note for:: 01/19/20 Subjective:: 69 year old male who presented to the emergency room with a 3-day history of dyspnea. He admits progressively worsening dyspnea, exacerbated by exertion, accompanied by a productive cough (clear to white phlegm), nasal congestion with clear discharge and associated with a subjective fever. His dyspnea has become severe. He denies other associated or accompanying signs and symptoms. He denies prior similar episodes. He has not identified any additional aggravating or ameliorating factors for his dyspnea. In the emergency room he was found to be febrile, have an elevated white blood count at 12,800 and an elevated lactic acid at 2.8. He was noted to have hypoxia requiring supplemental oxygen and a multifocal pneumonia on his chest CT. He was subsequently admitted to the hospital for further evaluation treatment. 01/15/2020- The patient was just up to the bathroom without nasal cannula in place. The tubing was too short. He is somewhat short of breath and has resumed oxygen by nasal cannula. His biggest complaint is still the cough. His white cell count is slightly higher today than yesterday but he is afebrile. 01/16/2020-Still with a very congested cough. Resting comfortably. He admits that he is feeling slightly better. Covid-19 results still not available. Reason For Visit: MULTIFOCAL PNEUMONIA Physical Exam Vital Signs: Temp Pulse Resp BP Pulse Ox 98.5 F 92 18 142/83 H 91 L 01/19/20 08:38 01/19/20 08:38 01/19/20 03:56 01/19/20 08:38 01/19/20 08:38 Intake & Output 01/18/20 01/19/20 01/20/20 06:59 06:59 06:59 Intake Total 860 1790 Output Total 352 Balance 508 1790 Weight 95.2 kg 95.2 kg General appearance: PRESENT: no acute distress Head exam: PRESENT: atraumatic Eye exam: PRESENT: PERRLA Mouth exam: PRESENT: dry mucosa Teeth exam: PRESENT: poor dentation Neck exam: ABSENT: carotid bruit, JVD, lymphadenopathy, thyromegaly Respiratory exam: PRESENT: decreased breath sounds Cardiovascular exam: PRESENT: RRR. ABSENT: diastolic murmur, rubs, systolic murmur Vascular exam: PRESENT: normal capillary refill GI/Abdominal exam: PRESENT: normal bowel sounds, soft. ABSENT: distended, guarding, mass, organolmegaly, rebound, tenderness Rectal exam: PRESENT: deferred Extremities exam: PRESENT: full ROM. ABSENT: calf tenderness, clubbing, pedal edema Neurological exam: PRESENT: alert, awake, oriented to person, oriented to place, oriented to time, oriented to situation, CN II-XII grossly intact. ABSENT: motor sensory deficit Psychiatric exam: PRESENT: appropriate affect, normal mood. ABSENT: homicidal ideation, suicidal ideation Skin exam: PRESENT: dry, intact, warm. ABSENT: cyanosis, rash Results Laboratory Results: 01/17/20 05:10 01/17/20 05:10 01/14/20 01/14/20 15:45 15:45 Troponin I < 0.012 NT-Pro-B Natriuret Pep 24 Impressions: Chest X-Ray 01/14/20 15:52 IMPRESSION: NO ACUTE RADIOGRAPHIC FINDING IN THE CHEST. Chest/Abdomen CTA 01/14/20 16:33 IMPRESSION: 1. Multifocal pneumonia most prominent in the right lower lobe. 2. Moderate hepatic steatosis. 3. No pulmonary embolism. Assessment and Plan - Diagnosis (1) Multifocal pneumonia Is this a current diagnosis for this admission?: Yes Plan: Continue current antibiotics, showing a response, cultures are pending. Coronavirus testing is pending. (2) Acute respiratory failure with hypoxia Is this a current diagnosis for this admission?: Yes Plan: Currently on stable on level of oxygen support, wean oxygen as tolerated. Down to 1 L now, will try to decrease oxygen even more and ambulate him. 01/19/2020-patient admitted with acute respiratory failure with hypoxia most likely secondary to multifocal pneumonia. Doing well. Pulse ox is 95% on 1 L. (3) Diabetes mellitus type 2 in nonobese Is this a current diagnosis for this admission?: No Plan: Continue consistent carbohydrate diet and sliding scale insulin 01/19/2020-patient blood sugar is 112. Plan is to continue insulin sliding scale. hemoGlobin A1c A1c 7.3. Diet compliance with medications discussed with the patient. - Plan Summary Summary: Patient is admitted to the medical floor where he will receive routine supportive and symptomatic cares. He will receive an aggressive pulmonary toilet utilizing Xopenex, Atrovent, Pulmicort and Mucomyst delivered via ne bulizers. In the emergency room treatment was initiated with intravenous cefepime and oral levofloxacin by the ER physician. He will receive supplemental oxygen via nasal cannula and/or airway pressure support devices such as BiPAP or CPAP in order to maintain an adequate oxygen saturation. He wi ll receive ongoing high-volume IV fluids over the first 24 hours of admission. Serial lactic acid levels will be obtained and his vital signs were monitored closely. Before meals and at bedtime Accu-Cheks will be obtained with sliding scale insulin for hyperglycemia and a hypoglycemic protocol in place. A cardiac and diabetic restricted diet will be ordered. Blood cultures and coronavirus screening were performed in ER with results pending. CBCs, metabolic profiles, magnesium levels and arterial or venous blood gases will be obtained as needed. Patient will be continued on his usual medications as soon as his home medication list has been verified and reconciled. A nicotine replacement patch will be available for the patient's use, if desired.
[2020-01-19] MEDS: ATORVASTATIN CALCIUM 20 MG TABLET PO SCH (21:47)
[2020-01-20] MEDS: CEFEPIME HCL 2 GM in DEXTROSE 5%-WATER 50 ML IV SCH (05:04)
[2020-01-20] MEDS: HEPARIN SOD (PORCINE) 5,000 UNIT/ML 1 ML VIAL SUBCUT SCH (05:04)
[2020-01-20] MEDS: INSULIN REG, HUMAN 100 UNIT/ML 3 ML VIAL (PYX) SUBCUT SCH (08:52)
[2020-01-20] MEDS: ASPIRIN 81 MG TABLET, ENT COATED PO SCH (09:32)
[2020-01-20] MEDS: METFORMIN HCL 500 MG TABLET PO SCH (09:32)
[2020-01-20] MEDS: SITAGLIPTIN PHOSPHATE 50 MG TABLET PO SCH (09:32)
[2020-01-20] MEDS: LEVOFLOXACIN 750 MG TABLET PO SCH (09:33)
[2020-01-20] MEDS: FAMOTIDINE 20 MG TABLET PO SCH (09:33)
[2020-01-20] MEDS: LISINOPRIL 5 MG TABLET PO SCH (09:33)
[2020-01-20 10:34] VITALS: BP 112/63
--- NOTE | 2020-01-20 11:15 | PDOC DISCHARGE SUMMARY ---
Impression - Admit/DC Date/PCP Admission Date/Primary Care Provider: 01/14/20 19:34 CHRISTIAN FERNANDES, Discharge Date: 01/20/20 - Discharge Diagnosis (1) Multifocal pneumonia Is this a current diagnosis for this admission?: Yes (2) Acute respiratory failure with hypoxia Is this a current diagnosis for this admission?: Yes (3) Diabetes mellitus type 2 in nonobese Is this a current diagnosis for this admission?: No - Assessment Summary: Patient is admitted to the medical floor where he will receive routine supportive and symptomatic cares. He will receive an aggressive pulmonary toilet utilizing Xopenex, Atrovent, Pulmicort and Mucomyst delivered via nebulizers. In the emergency room treatment was initiated with intravenous cefepime and oral levofloxacin by the ER physician. He will receive supplemental oxygen via nasal cannula and/or airway pressure support devices such as BiPAP or CPAP in order to maintain an adequate oxygen saturation. He will receive ongoing high-volume IV fluids over the first 24 hours of admission. Serial lactic acid levels will be obtained and his vital signs were monitored closely. Before meals and at bedtime Accu-Cheks will be obtained with sliding scale insulin for hyperglycemia and a hypoglycemic protocol in place. A cardiac and diabetic restricted diet will be ordered. Blood cultures and coronavirus screening were performed in ER with results pending. CBCs, metabolic profiles, magnesium levels and arterial or venous blood gases will be obtained as needed. Patient will be continued on his usual medications as soon as his home medication list has been verified and reconciled. A nicotine replacement patch will be available for the patient's use, if desired. (1) Multifocal pneumonia Is this a current diagnosis for this admission?: Yes Plan: Continue current antibiotics, showing a response, cultures are pending. Coronavirus testing is pending. 01/20/2020-blood cultures are negative, throat culture was negative. Coronary test is pending. Patient is advised to self quarantine until the results are negative. (2) Acute respiratory failure with hypoxia Is this a current diagnosis for this admission?: Yes Plan: Currently on stable on level of oxygen support, wean oxygen as tolerated. Down to 1 L now, will try to decrease oxygen even more and ambulate him. 01/19/2020-patient admitted with acute respiratory failure with hypoxia most likely secondary to multifocal pneumonia. Doing well. Pulse ox is 95% on 1 L. 01/20/20-patient admitted acute respiratory failure with hypoxia pulse ox today is 97% on room air. Acute respiratory failure with hypoxia resolved. (3) Diabetes mellitus type 2 in nonobese Is this a current diagnosis for this admission?: No Plan: Continue consistent carbohydrate diet and sliding scale insulin 01/19/2020-patient blood sugar is 112. Plan is to continue insulin sliding scale. hemoGlobin A1c A1c 7.3. Diet compliance with medications discussed with the patient. 01/20/2020-patient blood sugars are stable. Advised to continue his home medications upon discharge. - Additional Information Resuscitation Status: Full Code Discharge Activity: Activity As Tolerated Referrals: [facility] [Outside] (PATIENT TO BE FOLLOWED BY HEALTH DEPT. ON SELF QUARANTINE AT HOME. ONCE THE HEALTH DEPT. RELEASES PATIENT THEN PATIENT MAY SCHEDULE A FOLLOW UP APPT. WITH PCP.) CHRISTIAN FERNANDES DO [Primary Care Provider] - Follow up as needed Prescriptions: Levofloxacin [Levaquin 750 mg Tablet] 750 mg PO DAILY #5 tablet Home Medications: Albuterol Sulfate [Albuterol Sulfate Hfa] 2 puff IH Q4HP PRN 01/15/20 Aspirin [Ecotrin 81 mg EC Tablet] 81 mg PO DAILY 01/15/20 Atorvastatin Calcium [Lipitor 20 mg Tablet] 20 mg PO QHS 01/15/20 Insulin Glargine,Hum.rec.anlog [Lantus (Pyxis) Insulin 100 Unit/1 ml 10 ml] 20 unit SUBCUT QHS 01/15/20 Insulin Regular, Human [Humulin R (Reg) Insulin 100 Unit/1 ml 3 ml] 0 unit SUBCUT .SLIDING SCALE MDD 80 UNITS 01/15/20 Lisinopril [Prinivil 5 mg Tablet] 5 mg PO DAILY 01/15/20 Metformin HCl [Glucophage] 1,000 mg PO BIDBS 01/15/20 Sitagliptin Phosphate [Januvia 50 mg Tablet] 100 mg PO DAILY 01/15/20 Levofloxacin [Levaquin 750 mg Tablet] 750 mg PO DAILY #5 tablet 01/20/20 History of Present Illiness History of Present Illness: AMAURY BERMAN is a 69 year old male 69 year old male who presented to the emergency room with a 3-day history of dyspnea. He admits progressively worsening dyspnea, exacerbated by exertion, accompanied by a productive cough (clear to white phlegm), nasal congestion with clear discharge and associated with a subjective fever. His dyspnea has become severe. He denies other associated or accompanying signs and symptoms. He denies prior similar episodes. He has not identified any additional aggravating or ameliorating factors for his dyspnea. In the emergency room he was found to be febrile, have an elevated white blood count at 12,800 and an elevated lactic acid at 2.8. He was noted to have hypoxia requiring supplemental oxygen and a multifocal pneumonia on his chest CT. He was subsequently admitted to the hospital for further evaluation treatment. Hospital Course Hospital Course: 69 year old male who presented to the emergency room with a 3-day history of dy spnea. He admits progressively worsening dyspnea, exacerbated by exertion, accompanied by a productive cough (clear to white phlegm), nasal congestion with clear discharge and associated with a subjective fever. His dyspnea has become severe. He denies other associated or accompanying signs and symptoms. He denies prior similar episodes. He has not identified any additional aggravating or ameliorating factors for his dyspnea. In the emergency room he was found to be febrile, have an elevated white blood count at 12,800 and an elevated lactic acid at 2.8. He was noted to have hypoxia requiring supplemental oxygen and a multifocal pneumonia on his chest CT. He was subsequently admitted to the hospital for further evaluation treatment. 01/15/2020- The patient was just up to the bathroom without nasal cannula in place. The tubing was too short. He is somewhat short of breath and has resumed oxygen by nasal cannula. His biggest complaint is still the cough. His white cell count is slightly higher today than yesterday but he is afebrile. 01/16/2020-Still with a very congested cough. Resting comfortably. He admits that he is feeling slightly better. Covid-19 results still not available. 01/20/20-patient is comfortable in the bed communicating well. Not in distress. Afebrile. Expressing desire to go home. His coronavirus testing is still pending. Patient lives alone patient was strongly advised to self quarantine until the test came back negative. pt understood and verbalized response. Physical Exam Vital Signs: Temp Pulse Resp BP Pulse Ox 98.3 F 85 16 112/63 94 01/20/20 10:33 01/20/20 10:33 01/20/20 10:33 01/20/20 10:33 01/20/20 10:33 Intake & Output 01/19/20 01/20/20 01/21/20 06:59 06:59 06:59 Intake Total 1790 1342 Balance 1790 1342 Weight 98.4 kg General appearance: PRESENT: no acute distress Head exam: PRESENT: atraumatic Eye exam: PRESENT: PERRLA Mouth exam: PRESENT: moist, tongue midline Teeth exam: PRESENT: poor dentation Neck exam: ABSENT: carotid bruit, JVD, lymphadenopathy, thyromegaly Respiratory exam: PRESENT: decreased breath sounds Cardiovascular exam: PRESENT: RRR. ABSENT: diastolic murmur, rubs, systolic murmur GI/Abdominal exam: PRESENT: normal bowel sounds, soft. ABSENT: distended, guarding, mass, organolmegaly, rebound, tenderness Rectal exam: PRESENT: deferred Extremities exam: PRESENT: full ROM. ABSENT: calf tenderness, clubbing, pedal edema Neurological exam: PRESENT: alert, awake, oriented to person, oriented to place, oriented to time, oriented to situation, CN II-XII grossly intact. ABSENT: motor sensory deficit Psychiatric exam: PRESENT: appropriate affect, normal mood. ABSENT: homicidal ideation, suicidal ideation Results Laboratory Results: WBC 10.1 10^3/uL (4.0-10.5) 01/17/20 05:10 RBC 4.27 10^6/uL (4.35-5.55) L 01/17/20 05:10 Hgb 12.6 g/dL (13.5-17.0) L 01/17/20 05:10 Hct 38.0 % (37.9-51.0) 01/17/20 05:10 MCV 89 fl (80-97) 01/17/20 05:10 MCH 29.5 pg (27.0-33.4) 01/17/20 05:10 MCHC 33.2 g/dL (32.0-36.0) 01/17/20 05:10 RDW 13.5 % (11.5-14.0) 01/17/20 05:10 Plt Count 244 10^3/uL (150-450) 01/17/20 05:10 Lymph % (Auto) 8.0 % (13-45) L 01/14/20 15:45 Owen % (Auto) 7.4 % (3-13) 01/14/20 15:45 Eos % (Auto) 0.1 % (0-6) 01/14/20 15:45 Baso % (Auto) 0.4 % (0-2) 01/14/20 15:45 Absolute Neuts (auto) 10.8 10^3/uL (1.7-8.2) H 01/14/20 15:45 Absolute Lymphs (auto) 1.0 10^3/uL (0.5-4.7) 01/14/20 15:45 Absolute Monos (auto) 1.0 10^3/uL (0.1-1.4) 01/14/20 15:45 Absolute Eos (auto) 0.0 10^3/uL (0.0-0.6) 01/14/20 15:45 Absolute Basos (auto) 0.1 10^3/uL (0.0-0.2) 01/14/20 15:45 Seg Neutrophils % 84.1 % (42-78) H 01/14/20 15:45 PT 13.9 SEC (11.4-15.4) 01/14/20 15:45 INR 1.07 01/14/20 15:45 VBG pH 7.40 (7.30-7.42) 01/14/20 15:45 VBG pCO2 39.5 mmHg (35-63) 01/14/20 15:45 VBG HCO3 24.1 mmol/L (20-32) 01/14/20 15:45 VBG Base Excess -0.4 mmol/L 01/14/20 15:45 Sodium 136.5 mmol/L (137-145) L 01/17/20 05:10 Potassium 4.2 mmol/L (3.6-5.0) 01/17/20 05:10 Chloride 99 mmol/L (98-107) 01/17/20 05:10 Carbon Dioxide 29 mmol/L (22-30) 01/17/20 05:10 Anion Gap 9 (5-19) 01/17/20 05:10 BUN 16 mg/dL (7-20) 01/17/20 05:10 Creatinine 0.88 mg/dL (0.52-1.25) 01/17/20 05:10 Est GFR ( Amer) > 60 (>60) 01/17/20 05:10 Est GFR (MDRD) Non-Af > 60 (>60) 01/17/20 05:10 Glucose 100 mg/dL (75-110) 01/17/20 05:10 POC Glucose 114 mg/dL (70-110) H 01/20/20 08:53 Hemoglobin A1c % 7.3 % (4.7-6.0) H 01/15/20 05:13 Lactic Acid 1.9 mmol/L (0.7-2.1) 01/14/20 22:29 Calcium 8.8 mg/dL (8.4-10.2) 01/17/20 05:10 Total Bilirubin 1.0 mg/dL (0.2-1.3) 01/14/20 15:45 Direct Bilirubin 0.1 mg/dL (0.0-0.4) 01/14/20 15:45 Neonat Total Bilirubin Not Reportable 01/14/20 15:45 Neonat Direct Bilirubin Not Reportable 01/14/20 15:45 Neonat Indirect Bili Not Reportable 01/14/20 15:45 AST 24 U/L (17-59) 01/14/20 15:45 ALT 25 U/L (<50) 01/14/20 15:45 Alkaline Phosphatase 59 U/L (38-126) 01/14/20 15:45 Troponin I < 0.012 ng/mL 01/14/20 15:45 NT-Pro-B Natriuret Pep 24 pg/mL (<125) 01/14/20 15:45 Total Protein 6.9 g/dL (6.3-8.2) 01/14/20 15:45 Albumin 4.2 g/dL (3.5-5.0) 01/14/20 15:45 Triglycerides 60 mg/dL (<150) 01/15/20 05:13 Cholesterol 82.67 mg/dL (0-200) 01/15/20 05:13 LDL Cholesterol Direct 45 mg/dL (<100) 01/15/20 05:13 VLDL Cholesterol 12.0 mg/dL (10-31) 01/15/20 05:13 HDL Cholesterol 35 mg/dL (>40) L 01/15/20 05:13 TSH 0.67 uIU/mL (0.47-4.68) 01/15/20 05:13 COVID-19 Source THROAT 01/14/20 16:50 Influenza A (Rapid) NEGATIVE (NEGATIVE) 01/14/20 15:45 Influenza B (Rapid) NEGATIVE (NEGATIVE) 01/14/20 15:45 Group A Strep Rapid NEGATIVE (NEGATIVE) 01/14/20 15:45 01/14/20 01/14/20 15:45 15:45 Troponin I < 0.012 NT-Pro-B Natriuret Pep 24 Impressions: Chest X-Ray 01/14/20 15:52 IMPRESSION: NO ACUTE RADIOGRAPHIC FINDING IN THE CHEST. Chest/Abdomen CTA 01/14/20 16:33 IMPRESSION: 1. Multifocal pneumonia most prominent in the right lower lobe. 2. Moderate hepatic steatosis. 3. No pulmonary embolism. Plan Plan of Treatment: Patient is advised to follow-up with primary care physician in 5 to 7 days. He was also advised to self quarantine until the coronavirus testing comes back negative. Going home on levofloxacin 750 mg p.o. daily for 5 days. Time Spent: Greater than 30 Minutes Stroke Is this a Stroke Patient?: No Acute Heart Failure - Is this a Heart Failure Patient?: No
== END 2020-01-20 12:00 | disposition home or self-care (01) | DRG 193 ==
LOC: ER 15:43 → EH 19:34 → 5 21:20
PROVIDERS: ADMIT Emergency Medicine; ATTEND Internal Medicine
DX: J18.9 Pneumonia, unspecified organism (principal); J96.01 Acute respiratory failure with hypoxia; R65.10 Systemic inflammatory response syndrome (SIRS) of non-infectious origin without acute organ dysfunction; E11.9 Type 2 diabetes mellitus without complications; I10 Essential (primary) hypertension; J45.909 Unspecified asthma, uncomplicated; F17.220 Nicotine dependence, chewing tobacco, uncomplicated; E66.9 Obesity, unspecified; E78.5 Hyperlipidemia, unspecified; Z79.82 Long term (current) use of aspirin; Z79.4 Long term (current) use of insulin; Z79.899 Other long term (current) drug therapy; Z68.31 Body mass index [BMI] 31.0-31.9, adult; Z82.49 Family history of ischemic heart disease and other diseases of the circulatory system; Z83.3 Family history of diabetes mellitus
CPT/HCPCS: 36415; 71045; 71275; 80048; 80053; 80061; 82803; 82962; 83036; 83605; 83880; 84443; 84484; 85025; 85027; 85610; 87040; 87070; 87635; 87804; 87880; 93005; 93010; 94640; 96361; 96365; 96375; 99285; J0692; J1644; J1815; J2930; J3490; J7030; J7060; J7120; J7614